=== PATIENT | female | born 1970 | race Caucasian/White ===

== ENCOUNTER → 2016-12-13 | Outpatient (CLI) | payer OTHER ==
[~2016-12-13] VITALS: Ht 157.5 cm; Wt 128.4 kg
[~2016-12-13] MED LIST: ABILIFY 5 MG TAB5 MG PO; ABILIFY15 MG PO; ACIDOPHILUS LACT1 GM PO; ADVAIR 250-501 EACH INH; ALBUTEROL2.5 MG/3 M INH; AMBIEN 5 MG TABL5 M1 PO; AMLODIPINE BESYL5 MG PO; ANTIVERT25 MG PO; ASPIR 8181 MG PO; ATIVAN1 MG PO; AZITHROMYCIN 2250 MG PO; BACTROBAN CREAM30 G1 TOP; BENADRYL25 MG PO; CARBAMAZEPINE200 M2 PO; CLONAZEPAM 1 MG1 M1 PO; CORTISPORIN EAR10 ML OTIC; COUMADIN 5 MG TA5 M1 PO; COZAAR 25 MG TA25 M1 PO; COZAAR 50 MG TA50 M2 PO; COZAAR100 MG PO; DELTASONE20 MG PO; DIAZEPAM 10 MG10 M1 PO; DIPROLENE AF 0.15 GM TP; DOXYCYCLINE 10100 MG PO; DUONEB 2.5-0.5 M3 ML INH; ENOXAPARIN120 MG/0.1 SUBQ; FLAGYL500 MG PO; FLEXERIL PO; FUROSEMIDE 40 M40 MG PO; GABAPENTIN 100100 MG PO; GLUCOPHAGE1000 MG PO; GLUCOSE4 GM PO; HUMALOG MI100 UNIT/2 SQ; HUMALOG PE100 UNIT/M SUBQ; HUMALOG100 UNIT/1 SUBQ; HYDROCODON-ACE1 EAC7 PO; HYDROCODONE-AP1 EAC6 PO; HYDROCODONE-APA1 TA1 PO; IBUPROFEN 600600 M1 PO; IBUPROFEN 800800 M1 PO; KEPPRA 500 MG500 M1 PO; KLONOPIN1 MG PO; KLOR-CON 1010 MEQ PO; LAMICTAL100 MG PO; LAMOTRIGINE150 MG PO; LASIX 20 MG TAB20 MG PO; LEVAQUIN 500 M500 M2 PO; LEVAQUIN 500 M500 M4 PO; LEVEMIR FL100 UNIT/2 SQ; LEVEMIR SUBQ; LEXAPRO 10 MG T10 M1 PO; LEXAPRO 10 MG T10 M2 PO; LEXAPRO20 MG PO; LIDODERM 5%1 PATC1 TRANSDERM; LIPITOR10 MG PO; MAG-AL PLUS SUS30 ML PO; METOCLOPRAMIDE 55 M1 PO; MINIPRESS1 MG PO; MINIPRESS5 MG PO; MONTELUKAST SOD10 MG PO; MUCINEX DM TABL1 TA1 PO; MUCINEX TA600 MG/TA2 PO; MUCUS RELIEF600 MG PO; NEXIUM40 MG PO; NORCO 10-325 T1 EACH PO; NORCO 5-325 TA1 EACH PO; NOVOLOG100 UNIT/1 SUBQ; NYSTATIN 1100000 U/M SW&SWALLOW; NYSTATIN 1100000 U/M TOP; ONDANSETRON HCL4 M2 PO; PAXIL10 MG; PERCOCET 5-3251 EACH PO; POTASSIUM20 PO; PREDNISONE 10 M10 M1 PO; PREDNISONE 10 M10 MG; PREDNISONE 10 M10 MG PO; PREDNISONE 20 M20 MG PO; PREDNISONE50 MG PO; PRILOSEC 20 MG20 MG PO; PRILOSEC40 MG PO; PROAIR HFA8.5 GM INH; REGLAN 10 MG TA10 MG PO; REQUIP 0.25 M0.25 M1 PO; REQUIP 0.25 M0.25 MG PO; SPIRIVA INH; SPIRIVA18 MCG INH; TEGRETOL200 MG PO; TESSALON PERLE100 MG PO; TYLENOL325 MG PO; VALIUM5 MG PO; VENTOLIN HFA 1818 GM INH; VICTOZA0.6 MG/0.1 SUBQ; VOLTAREN GEL 1100 G2 TOP; WARFARIN SODIUM10 MG PO; XALATAN2.5 ML OPHTHALMIC; XARELTO15 MG PO; ZOFRAN ODT4 MG PO; ZOFRAN ODT8 MG PO; ZOLPIDEM TARTRA10 MG PO
--- NOTE | ~2016-12-13 | P ---
[facility] [address] PROCEDURE REPORT Name: ADRIÁN DAN Ebony Room #: REG [facility]#: [id number] Admission: 12/13/16 Attend Phys: Aris Valentin MD Discharge: Date of : 68 Report #: [id number] THIS REPORT FOR: //name// CC: Aris Ruelas MD BRIEF HISTORY: The patient is a 46-year-old woman who has had anemia. She has also had melanotic stools. She is on warfarin due to pulmonary emboli. PREOPERATIVE DIAGNOSIS: Melena and anemia. POSTOPERATIVE DIAGNOSIS: A 6 mm sessile polyp, rectum. MEDICATIONS: Deep sedation with propofol per anesthesia. SPECIMEN: Rectal polyp. ESTIMATED BLOOD LOSS: 3 mL. PROCEDURE: Colonoscopy to cecum with snare polypectomy. FINDINGS: Prior to propofol sedation, procedure of colonoscopy was discussed with the patient as well as potential risks, benefits, and complications. She indicates she understands and desires to proceed. DESCRIPTION OF PROCEDURE: With the patient in left lateral decubitus position, digital examination was completed which revealed no abnormalities. Subsequently, the [employer] video colonoscope was introduced in the rectum, advanced under direct vision to the cecum. Done with minimal difficulty. The cecum was identified by the ileocecal valve and the appendiceal orifice. Unfortunately, there were limitations of the prep and there was a moderate amount of semi-solid material filling the cecum, which could not be aspirated away. I actually to clarify above, we reached the cecum, but I could not see the appendiceal orifice. I could see the ileocecal valve, but due to looping could not advance the scope across the ileocecal valve. The prep limitations were primarily in the proximal colon. As we withdrew the scope distally, the prep improved. Upon slow withdrawal of the scope, the mucosa was inspected. The mucosa as well as could be seen was within normal limits, normal vascular pattern, normal light reflex. No blood or bleeding lesions were seen. Due to retained material in the proximal colon, a lesion could have been overlooked. As we withdrew the scope through the colon and withdrew distally, the prep became better. Again, no mucosal abnormalities or bleeding lesions were seen. The scope was withdrawn in the rectum. Upon retroflexion, just above the anal verge, a 6 mm sessile polyp was seen, it had an adenomatous appearance. It was removed by cold snare polypectomy. The scope was withdrawn. The patient tolerated the procedure [address] [address] PROCEDURE REPORT Name: ADRIÁN DAN Room #: REG [facility]#: [id number] Admission: 12/13/16 Attend Phys: Aris Valentin MD Discharge: Date of : 68 Report #: [id number]. CONDITION OF THE PATIENT UPON DISCHARGE: Last procedure, the patient drowsy, aroused. She will be discharged home when fully ambulatory. INSTRUCTIONS TO THE PATIENT AND FAMILY AT THE TIME OF DISCHARGE: Polyp was identified and removed as described above. However, a definite bleeding lesion was not seen. The source of black stools was not identified. Actually she can resume her Coumadin today. She reports her INR was 1.1 yesterday. We will follow up on the path of polyp and make further recommendations. However, at this point, due to the fact that we did find a polyp and there were significant limitations to her colonoscopy, we will have her return in the next few months to repeat a colonoscopy with a longer prep. With the use of narcotics and diabetes, there may be some motility issues as well. Also, as far as her melena, if that remains concern, an M2 capsule study could be pursued as well. She will return in the care of Dr. Hayley Velasquez and also Dr. An Ruelas. She is to return to see me as needed. <ELECTRONICALLY SIGNED> By: Aris Valentin MD 12/14/16 0743 1203 0107 Aris Valentin MD /nt
--- NOTE | ~2016-12-13 | S ---
[facility] [place] [address] SURGICAL PATH RPT PROCEDURE Name: KATIE DAN Room #: REG [facility].#: [id number] Admission: 12/13/16 Date of : 68 Discharge: Report #: [id number] Path Case #: [id number] PATHOLOGY REPORT COLLECTION DATE: 12/13/2016 RECEIVED DATE: 12/14/2016 SUBMITTING PHYS: Dr. Aris Valentin OTHER PHYS: Dr. Hayley Velasquez SPECIMEN(S) RECEIVED: A.SB BX B.Gastric gastritis C.Rectum polyp * * * * * * * * * * * * FINAL DIAGNOSIS: A. Small bowel mucosa, small bowel, endoscopic biopsy: - Negative for villous blunting or increase in intraepithelial lymphocytes. - Negative for active inflammation. B. Gastric mucosa, gastritis, rule out H. pylori, endoscopic biopsy: - Moderate reactive gastropathy. - Negative for intestinal metaplasia or atrophy. - Negative for Helicobacter pylori. C. Polyp, rectum polyp, endoscopic biopsy: - Tubular adenoma. - Negative for high grade dysplasia. COMMENT: Helicobacter pylori immunohistochemical stain performed on block B1 negative. (IUV:csd; d/t: 12/17/2016) PATHOLOGIST: Eva Simpson M.D. REPORT ELECTRONICALLY SIGNED BY: Eva Simpson M.D. DATE/TIME: 12/17/2016 16:33 * * * * * * * * * * * * GROSS PATHOLOGY: A. Received in formalin labeled "Katie Dan, SB BX," are six segments of ramos soft tissue measuring 1.0 x 0.9 x 0.2 cm in aggregate dimensions and ranging from 0.2 to 0.5 cm in maximum dimension. The specimen is submitted entirely in cassette A1. B. Received in formalin labeled "Katie Dan, gastric," are five segments of ramos soft tissue measuring 1.0 x 0.7 x 0.1 cm in aggregate dimensions and ranging from 0.1 to 0.7 cm in maximum dimension. The [facility] [place] [address] SURGICAL PATH RPT PROCEDURE Name: KATIE DAN Room #: REG [facility].#: [id number] Admission: 12/13/16 Date of : 68 Discharge: Report #: [id number] Path Case #: [id number] specimen is submitted entirely in cassette B1. C. Received in formalin labeled "Katie Dan, rectal polyp," are three segments of ramos soft tissue measuring 1.7 x 1.5 x 0.3 cm in aggregate dimensions and ranging from 0.5 to 0.7 cm in maximum dimension. The specimen is submitted entirely in cassette C1. (CAA; 12/14/2016) CLINICAL HISTORY: Anemia A. R/O celiac disease B. R/O H. pylori INITIAL CPT CODE(S): A; 42211 B; 87125, 41024 C; 92338 Professional services performed by [facility] at [facility] , [place] [address] Technical services performed by [facility] at [address] [place] [address], [address], [place] [address]. [facility] [address] [place] [address] PHONE: [phone] DIRECTOR: Ugo Weiss M.D. * * * END OF REPORT * * *
--- NOTE | ~2016-12-13 | P ---
[facility] [place] [address] PROCEDURE REPORT Name: ADRIÁN DAN Room #: REG [facility]#: [id number] Admission: 12/13/16 Attend Phys: Aris Valentin MD Discharge: Date of : 68 Report #: [id number] THIS REPORT FOR: //name// CC: Aris Ruelas MD BRIEF HISTORY: The patient is a 46-year-old woman who presents today for evaluation of melanotic stools while on warfarin. It is noted she does have intermittent solid food dysphagia. She also takes 2400 mg of ibuprofen daily. She has occasional heartburn symptoms. PREOPERATIVE DIAGNOSES: Anemia and melanotic stools and use of nonsteroidals. POSTOPERATIVE DIAGNOSES: 1. Small to moderate hiatus hernia. 3. Mild diffuse gastritis. MEDICATIONS: Deep sedation with propofol per anesthesia. SPECIMEN: 1. Small bowel biopsies to rule out celiac disease. 2. Biopsies of gastritis. ESTIMATED BLOOD LOSS: 3 mL. PROCEDURE: Esophagogastroduodenoscopy with biopsy and Arrieta dilation. FINDINGS: Prior to propofol sedation, procedure of upper endoscopy was discussed with the patient as well as potential risks and its complications. She indicates she understands and desires to proceed. With the patient in left lateral decubitus position, the [employer] video endoscope was inserted in the cervical esophagus under direct vision without difficulty. Examination of this organ its entire length revealed normal esophageal mucosa down the squamocolumnar junction. The squamocolumnar junction was normal. There was no evidence of bleeding, no esophageal varices. She had dysphagia. Definite stricture or ring was not seen. In addition, a small to moderate 2-3 cm sliding type hiatus hernia was intermittently seen. The mucosa in the hernia was normal. Scope was advanced fully into the stomach, was examined on end view as well as retroflexed views. She had intact mucosa. No ulcers, bleeding lesions or vascular ectasias. On retroflexion, no abnormalities were seen. No mass lesions were seen. Examination of distal stomach revealed a mild gastritis. She reports that she was told in the past she had "thinned stomach line." It may be somewhat atrophic. Biopsies were obtained of the body and antrum. The pylorus, duodenal bulb and postbulbar sweep were inspected and [facility] [address] [place] [address] PROCEDURE REPORT Name: ADRIÁN DAN [facility] [id number] Admission: 12/13/16 Attend Phys: Aris Valentin MD Discharge: Date of : 68 Report #: [id number] noted to be within normal limits. The villous pattern was normal. However, due to her anemia, small bowel biopsies obtained to evaluate for celiac disease. At that point, the scope was slowly withdrawn and careful circumferential views confirmed the above findings. The patient tolerated the procedure well. Following the procedure, she was dilated with passage of 50-Tristanian Arrieta dilator. There was no resistance. CONDITION OF THE PATIENT UPON DISCHARGE: Following procedure, the patient drowsy and prepared for colonoscopy. INSTRUCTIONS TO THE PATIENT AND FAMILY AT THE TIME OF DISCHARGE: I do not see any bleeding lesions. We will follow up on biopsies obtained today. She does use ibuprofen. The gastric mucosa was intact. She should continue her omeprazole. We will proceed with colonoscopy at this time. <ELECTRONICALLY SIGNED> By: Aris Valentin MD 12/14/16 0743 1135 0038 Aris Valentin MD /nt
== END | disposition home or self-care (01) ==
LOC: GI 08:58
DX: K92.1 Melena (principal); D64.9 Anemia, unspecified; D12.8 Benign neoplasm of rectum; I26.99 Other pulmonary embolism without acute cor pulmonale; R13.19 Other dysphagia; K29.70 Gastritis, unspecified, without bleeding; K44.9 Diaphragmatic hernia without obstruction or gangrene

== ENCOUNTER → 2017-02-07 | Outpatient (CLI) | payer OTHER ==
[~2017-02-07] VITALS: Ht 157.5 cm; Wt 129.7 kg
[~2017-02-07] MED LIST changes: +CARDURA4 MG PO
--- NOTE | ~2017-02-07 | P ---
[facility] [place] [address] PROCEDURE REPORT Name: ADRIÁN DAN Ebony Room #: REG [facility]#: [id number] Admission: 02/07/17 Attend Phys: Aris Valentin MD Discharge: Date of : 68 Report #: [id number] THIS REPORT FOR: //name// CC: Aris Velasquez MD DATE OF SERVICE: 02/07/2017 BRIEF HISTORY: The patient is a 46-year-old woman with anemia and melanotic stools. She presents for colonoscopy today as in November, her proximal colon was not adequately prepped for a complete colonoscopy. PREOPERATIVE DIAGNOSES: Melena, anemia and colon polyps as well as family history of colon cancer. POSTOPERATIVE DIAGNOSIS: Small hemorrhoids. MEDICATIONS: Deep sedation with propofol per anesthesia. SPECIMEN: None. ESTIMATED BLOOD LOSS: None. PROCEDURE: Colonoscopy to cecum and terminal ileum. FINDINGS: Prior to propofol sedation, procedure of colonoscopy discussed with the patient as well as potential risks and its complications. She indicates she understands and desires to proceed. DESCRIPTION OF PROCEDURE: With the patient in left lateral decubitus position, digital examination was completed which revealed no abnormalities. Subsequently, the [employer] video colonoscope was introduced into the rectum, advanced under direct vision to the cecum. Done with minimal difficulty. The cecum was identified by the ileocecal valve and the appendiceal orifice. I was able to visualize the distal segment of terminal ileum, which was inspected and noted to be unremarkable. At that point, the scope was slowly withdrawn and careful circumferential views were obtained. On today's exam as compared to several months ago, the prep was much improved in the proximal colon. We were able to see the appendiceal orifice today as on last exam, it was totally obscured. However, there was still some particulate matter scattered about the colon, in particular the cecum. However, again the prep was much improved from last time and although there were some minor limitations, reasonably good views were obtained throughout much of the colon in spite of some retained material. As we withdrew the scope, the mucosa was within normal limits, normal vascular pattern, normal light reflex. No polypoid lesions were seen. No bleeding [facility] [address] [place] [address] PROCEDURE REPORT Name: NIADRIÁN L Room #: REG [facility]#: [id number] Admission: 02/07/17 Attend Phys: Aris Valentin MD Discharge: Date of : 68 Report #: [id number] lesions were seen. I did not find evidence of vascular ectasias. As we withdrew the scope, no additional abnormalities were seen. The scope was withdrawn in the rectum. Upon retroflexion, some very small internal hemorrhoids were seen. There is no evidence of active bleeding. Scope was withdrawn. The patient tolerated the procedure well. CONDITION OF THE PATIENT UPON DISCHARGE: Following procedure, the patient drowsy, aroused, conversant. She will be discharged home when fully ambulatory. INSTRUCTIONS TO THE PATIENT AND FAMILY AT THE TIME OF DISCHARGE: The patient with melanotic stools and anemia. She has had a full workup at this point in time. An obvious source of blood loss has not been identified. I do not see that the M2 capsule study has been done. We will discuss with the patient role of M2 capsule study. Consider completing that exam at a later date. She should continue to follow up with Dr. Hayley Velasquez and to have her hemoglobin monitored. Due to her family history of colon cancer in father at age 56 and limitations of prep, we will have her return in 3 years for followup colonoscopy. Withdrawal time from the cecum was 12 minutes. By: 0952 1048 Aris Valentin MD /nt
== END | disposition home or self-care (01) ==
LOC: GI 08:26
DX: D64.9 Anemia, unspecified (principal); K92.1 Melena; Z80.0 Family history of malignant neoplasm of digestive organs; K64.8 Other hemorrhoids
CPT/HCPCS: 62110

== ENCOUNTER → 2017-03-13 | Outpatient (CLI) | payer OTHER | LOC: RAD 14:09 | DX: R05 Cough (principal) ==

== ENCOUNTER 2017-03-21 11:08 | Inpatient (IN) | payer OTHER ==
[~2017-03-21] VITALS: Ht 161 cm; Wt 131.5 kg
--- NOTE | ~2017-03-21 | EKG ---
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1970 Requested By: Davis Ryder Order Number: [id number] MD: Paxton Lane Measurements Intervals [place] Rate: 102 P: 35 NE: 148 QRS: 12 QRSD: 91 T: 71 QT: 335 QTc: 437 Interpretive Statements Sinus tachycardia Low voltage, precordial leads Compared to ECG 10/28/2016 17:10:13 Low QRS voltage now present Sinus rhythm no longer present Electronically Signed On 03-23-2017 15:55:[address] [email or web address] <ELECTRONICALLY SIGNED> By: Paxton Lane MD 03/23/[address] MD /[facility]
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
[2017-03-21 11:08] VITALS: BP 144/65
[2017-03-21 13:18] LABS: ABSOLUTE NEUTROPHILS 9.1 thou/uL (1.4-8.2); BASOPHILS 0.6 % (0.0-2.0); EOSINOPHILS 2.1 % (0.0-3.0); HEMOGLOBIN 9.2 gm/dL (12.0-15.0); LYMPHOCYTES 16.7 % (24.0-44.0); MCHC 30.5 g/dL (28.0-37.0); MCV 72.2 fL (80.0-100.0); MONOCYTES 4.9 % (1.0-8.0); PLATELET COUNT 402 thou/uL (150-400); POLYS 75.7 % (36.0-66.0); RBC 4.15 mil/uL (4.20-5.00); WBC 12.1 thou/uL (4.0-11.0)
[2017-03-21 13:19] LABS: MANUAL DIFF NO
[2017-03-21] MEDS ORDERED: NORCO 10-325 T1 EACH PO (13:24)
[2017-03-21 13:31] LABS: ANION GAP 1 mmol/L (7-16); APTT 23.3 Seconds (24.5-32.8); BUN 14 mg/dL (7-18); CALCIUM 8.8 mg/dL (8.5-10.1); CHLORIDE 99 mmol/L (98-107); CO2 40 mmol/L (21-32); CREATININE 0.5 mg/dL (0.6-1.0); GLUCOSE 117 mg/dL (74-106); POTASSIUM 3.7 mmol/L (3.5-5.1); PROTIME 10.7 Seconds (9.3-11.4); SODIUM 140 mmol/L (136-145)
[2017-03-21 13:34] LABS: ANISOCYTOSIS 2+; HYPOCHROMASIA 2+; MICROCYTES 2+; OVALOCYTES FEW; PLATELET ESTIMATE INCREASED
[2017-03-21 13:50] LABS: ALBUMIN 3.1 g/dL (3.4-5.0); ALKALINE PHOSPHATASE 75 U/L (46-116); CK-MB MASS 1.5 ng/mL (<0.5-3.6); MAGNESIUM 1.9 mg/dL (1.8-2.4); NT-PRO BRAIN NAT PEPTIDE 180 pg/mL (<300); SGOT 22 U/L (15-37); SGPT 40 U/L (30-65); TOTAL BILIRUBIN 0.1 mg/dL (<0.1-1.0); TOTAL PROTEIN 6.7 g/dL (6.4-8.2); TROPONIN-I < 0.04 ng/mL (<0.04-0.07)
[2017-03-21] MEDS ORDERED: WARFARIN SODIUM10 MG PO (14:43)
[2017-03-21 15:56] VITALS: BP 126/71
[2017-03-21 20:00] VITALS: BP 153/76
[2017-03-22 04:00] VITALS: BP 123/66
[2017-03-22 04:40] LABS: HEMATOCRIT 30.1 % (37.0-47.0); HEMOGLOBIN 9.2 gm/dL (12.0-15.0); MCH 22.1 pg (26.0-34.0); MCHC 30.5 g/dL (28.0-37.0); MCV 72.4 fL (80.0-100.0); PLATELET COUNT 422 thou/uL (150-400); RBC 4.16 mil/uL (4.20-5.00); RDW 20.2 % (10.5-14.5); WBC 12.3 thou/uL (4.0-11.0)
[2017-03-22 04:42] LABS: MANUAL DIFF YES
[2017-03-22 04:48] LABS: CALCIUM 9.1 mg/dL (8.5-10.1); CREATININE 0.6 mg/dL (0.6-1.0); POTASSIUM 4.2 mmol/L (3.5-5.1)
[2017-03-22 04:51] LABS: INR 1.1; PROTIME 11.6 Seconds (9.3-11.4)
[2017-03-22 08:00] VITALS: BP 135/70
[2017-03-22 08:03] VITALS: BP 135/70
[2017-03-22 08:28] LABS: ABSOLUTE NEUTROPHILS 11.1 thou/uL (1.4-8.2); NUCLEATED RBCS 1 /100WBC; TOTAL CELL COUNT 100
[2017-03-22 08:29] LABS: ANISOCYTOSIS 1+; HYPOCHROMASIA 1+; LARGE PLATELETS OCCASIONAL
[2017-03-22 08:30] LABS: MICROCYTES SLIGHT; OVALOCYTES FEW
[2017-03-22 17:50] VITALS: BP 155/82
[2017-03-22 20:10] VITALS: BP 155/94
[2017-03-23 00:30] VITALS: BP 145/78
[2017-03-23 00:41] VITALS: BP 105/61
[2017-03-23 02:58] LABS: HEMATOCRIT 28.3 % (37.0-47.0); HEMOGLOBIN 8.8 gm/dL (12.0-15.0); MCH 22.3 pg (26.0-34.0); MCHC 31.2 g/dL (28.0-37.0); MCV 71.4 fL (80.0-100.0); RBC 3.96 mil/uL (4.20-5.00); RDW 20.4 % (10.5-14.5)
[2017-03-23 03:00] VITALS: BP 145/78
[2017-03-23 03:04] LABS: CALCIUM 9.3 mg/dL (8.5-10.1); CREATININE 0.5 mg/dL (0.6-1.0); POTASSIUM 4.6 mmol/L (3.5-5.1)
[2017-03-23 03:10] LABS: PROTIME 17.6 Seconds (9.3-11.4)
[2017-03-23 03:35] LABS: INR 1.7
[2017-03-23 08:40] VITALS: BP 151/91
[2017-03-23 18:05] VITALS: BP 167/83
[2017-03-23 20:15] VITALS: BP 178/83
[2017-03-24 04:10] VITALS: BP 160/77
[2017-03-24 06:07] LABS: PROTIME 28.8 Seconds (9.3-11.4)
[2017-03-24 06:08] LABS: INR 2.8
[2017-03-24 08:00] VITALS: BP 152/95
[2017-03-24 16:00] VITALS: BP 150/74
[2017-03-24 20:00] VITALS: BP 146/72
[2017-03-25 03:11] LABS: INR 1.9; PROTIME 19.6 Seconds (9.3-11.4)
[2017-03-25 04:00] VITALS: BP 137/87
[2017-03-25] MEDS ORDERED: MIRALAX17 GM PO (09:08)
[2017-03-25] MEDS ORDERED: PROBIOTIC1 EAC1 PO (09:08)
[2017-03-25] MEDS ORDERED: PREDNISONE 10 M10 MG PO (09:08)
[2017-03-25] MEDS ORDERED: LEVAQUIN 750 M750 MG PO (09:08)
[2017-03-25 09:25] VITALS: BP 142/75
[2017-03-25 17:52] VITALS: BP 128/72
[2017-03-25 19:41] VITALS: BP 157/67
[2017-03-26 03:57] VITALS: BP 137/68
[2017-03-26 04:14] LABS: INR 1.4
[2017-03-26 07:57] VITALS: BP 132/74
[2017-03-26 16:02] VITALS: BP 129/64
[2017-03-26 20:00] VITALS: BP 146/73
[2017-03-27 04:00] VITALS: BP 133/71
[2017-03-27 06:23] LABS: INR 1.2; PROTIME 12.7 Seconds (9.3-11.4)
[2017-03-27 08:00] VITALS: BP 128/59
[2017-03-27 12:52] LABS: HEMATOCRIT 35.2 % (37.0-47.0); HEMOGLOBIN 10.8 gm/dL (12.0-15.0); MCH 22.4 pg (26.0-34.0); MCHC 30.6 g/dL (28.0-37.0); MCV 73.4 fL (80.0-100.0); RBC 4.8 mil/uL (4.20-5.00); RDW 21.5 % (10.5-14.5); WBC 15.8 thou/uL (4.0-11.0)
[2017-03-27 13:00] LABS: CALCIUM 8.5 mg/dL (8.5-10.1); CREATININE 0.7 mg/dL (0.6-1.0); POTASSIUM 4.3 mmol/L (3.5-5.1)
[2017-03-27 13:00] LABS: ABG COMMENT NO COMPLICATIONS.; ABG SAMPLE TYPE ARTERIAL; BE(vivo) 8.1 mmol/L (-2 to +3); LACTATE 2.07 mmol/L (0.5-2.0); O2(CT) 14.7 mL/dL (15.0-23.0); O2Hb 93.1 % (92.0-98.0); PCO2 61.1 mmHg (35.0-45.0); PO2 74.9 mmHg (80.0-100.0); STICK SITE R.RADIAL; pH 7.376 (7.360-7.450); sO2 94.4 % (92.0-98.0); tCO2 36.9 mmol/L (24.0-30.0)
[2017-03-27 18:08] VITALS: BP 145/67
[2017-03-27 19:45] VITALS: BP 140/79
[2017-03-28 03:00] VITALS: BP 143/92
[2017-03-28 03:15] VITALS: BP 143/82
[2017-03-28 06:59] LABS: INR 1.5; PROTIME 15.7 Seconds (9.3-11.4)
[2017-03-28 07:08] VITALS: BP 133/77
[2017-03-28 09:04] LABS: ANION GAP < 0 mmol/L (7-16); BUN 24 mg/dL (7-18); CALCIUM 8.5 mg/dL (8.5-10.1); CHLORIDE 100 mmol/L (98-107); CO2 39 mmol/L (21-32); CREATININE 0.6 mg/dL (0.6-1.0); GLUCOSE 305 mg/dL (74-106); POTASSIUM 5.2 mmol/L (3.5-5.1); SODIUM 138 mmol/L (136-145)
[2017-03-28 09:38] LABS: HEMATOCRIT 32.6 % (37.0-47.0); HEMOGLOBIN 9.9 gm/dL (12.0-15.0); MCH 22.5 pg (26.0-34.0); MCHC 30.5 g/dL (28.0-37.0); MCV 73.8 fL (80.0-100.0); RBC 4.42 mil/uL (4.20-5.00); RDW 21.8 % (10.5-14.5); WBC 14.6 thou/uL (4.0-11.0)
[2017-03-28 16:01] VITALS: BP 124/67
[2017-03-28 19:49] VITALS: BP 125/53
[2017-03-29 01:11] LABS: GLYCOHEMOGLOBIN (HGB A1C) 9.2 % (4.8-5.6)
[2017-03-29 04:22] VITALS: BP 107/63
[2017-03-29 08:47] VITALS: BP 109/66
[2017-03-29 12:34] VITALS: BP 139/70
[2017-03-29 16:44] VITALS: BP 113/60
[2017-03-29 20:30] VITALS: BP 117/60
[2017-03-30 04:15] VITALS: BP 113/63
[2017-03-30 08:32] VITALS: BP 118/60
[2017-03-30 12:59] LABS: PROTIME 30.8 Seconds (9.3-11.4)
[2017-03-30] MEDS ORDERED: TRADJENTA5 MG PO (13:46)
[2017-03-30] MEDS ORDERED: GLUCOPHAGE500 MG PO (13:46)
[2017-03-30 14:09] VITALS: BP 118/60
[2017-03-30 16:44] VITALS: BP 105/50
[2017-03-30 17:34] VITALS: BP 118/60
== END 2017-03-30 19:30 | disposition home health service (06) | DRG 871 ==
LOC: ER 11:08 → 3N 13:50 → EROBS 13:50 → 3N 14:50
PROVIDERS: Emergency Medicine; Hospitalist; Internal Medicine; Internal Medicine Endocrinology, Diabetes & Metabolism; Internal Medicine Pulmonary Disease; Nurse Practitioner
PROC: 02HV33Z Insertion of Infusion Device into Superior Vena Cava, Percutaneous Approach (ICD-10-PCS; principal; 2017-03-22)
DX: A41.9 Sepsis, unspecified organism (principal); J96.21 Acute and chronic respiratory failure with hypoxia; I50.33 Acute on chronic diastolic (congestive) heart failure; J44.1 Chronic obstructive pulmonary disease with (acute) exacerbation; E66.2 Morbid (severe) obesity with alveolar hypoventilation; D68.59 Other primary thrombophilia; Z68.43 Body mass index [BMI] 50.0-59.9, adult; I42.9 Cardiomyopathy, unspecified; I11.0 Hypertensive heart disease with heart failure; H40.9 Unspecified glaucoma; F41.9 Anxiety disorder, unspecified; F43.10 Post-traumatic stress disorder, unspecified; E78.00 Pure hypercholesterolemia, unspecified; L40.9 Psoriasis, unspecified; K21.9 Gastro-esophageal reflux disease without esophagitis; F31.9 Bipolar disorder, unspecified; E11.65 Type 2 diabetes mellitus with hyperglycemia; D64.9 Anemia, unspecified; G40.909 Epilepsy, unspecified, not intractable, without status epilepticus; D72.829 Elevated white blood cell count, unspecified; N28.1 Cyst of kidney, acquired; E78.5 Hyperlipidemia, unspecified; I27.2 Other secondary pulmonary hypertension; G25.81 Restless legs syndrome; Z88.5 Allergy status to narcotic agent; Z88.6 Allergy status to analgesic agent; Z86.711 Personal history of pulmonary embolism; Z90.710 Acquired absence of both cervix and uterus; Z88.0 Allergy status to penicillin; Z88.8 Allergy status to other drugs, medicaments and biological substances; Z86.718 Personal history of other venous thrombosis and embolism; Z88.2 Allergy status to sulfonamides; Z91.040 Latex allergy status; Z91.09 Other allergy status, other than to drugs and biological substances; Z87.891 Personal history of nicotine dependence; Z79.01 Long term (current) use of anticoagulants; Z99.81 Dependence on supplemental oxygen; Z79.4 Long term (current) use of insulin
CPT/HCPCS: 10096; 27001

== ENCOUNTER 2017-04-25 11:52 | Inpatient (IN) | payer OTHER ==
[~2017-04-25] VITALS: Ht 165.1 cm; Wt 127.0 kg
--- NOTE | ~2017-04-25 | S ---
[facility] [place] [address] SURGICAL PATH RPT PROCEDURE Name: KATIE DAN Room #: 434-P DIS IN M.R.#: [id number] Admission: 04/25/17 Date of : 68 Discharge: 04/30/17 Report #: [id number] Path Case #: [id number] PATHOLOGY REPORT COLLECTION DATE: 04/29/2017 RECEIVED DATE: 04/29/2017 SUBMITTING PHYS: Dr. Francisco De La Torre OTHER PHYS: Dr. Taylor Velasquez SPECIMEN(S) RECEIVED: A.Small bowel bx B.Gastric bx * * * * * * * * * * * * FINAL DIAGNOSIS: A. Small bowel mucosa, endoscopic biopsy: - No diagnostic abnormalities present. - Negative for villous blunting or increase in intraepithelial lymphocytosis. B. Gastric mucosa, gastric, endoscopic biopsy: - Mild chronic gastritis along with features of reactive gastropathy. - Negative for intestinal metaplasia or atrophy. - Negative for Helicobacter pylori. COMMENT: Helicobacter pylori immunohistochemical stain performed on block B1-negative (IUV:mgr; 05/01/2017) PATHOLOGIST: Eva Simpson M.D. REPORT ELECTRONICALLY SIGNED BY: Eva Simpson M.D. DATE/TIME: 05/01/2017 15:39 * * * * * * * * * * * * GROSS PATHOLOGY: A. Received in formalin labeled "Katie Dan, biopsy of small bowel," are three segments of ramos soft tissue measuring 0.8 x 0.4 x 0.3 cm in aggregate dimensions and ranging from 0.3 to 0.4 cm in maximum dimension. The specimen is submitted entirely in cassette A1. B. Received in formalin labeled "Katie Dan, biopsy gastric," are three segments of ramos soft tissue measuring 0.8 x 0.3 x 0.3 cm in aggregate dimensions and ranging from 0.2 to 0.4 cm in maximum dimension. The specimen is submitted entirely in cassette B1. (DAC; 04/30/2017) [address] [address] SURGICAL PATH RPT PROCEDURE Name: KATIE DAN Room #: 434-P [facility] IN M.R.#: [id number] Admission: 04/25/17 Date of : 68 Discharge: 04/30/17 Report #: [id number] Path Case #: [id number] CLINICAL HISTORY: Nausea, vomiting, reflux, hematemesis A. R/O sprue B. R/O H. pylori INITIAL CPT CODE(S): A; 86125 B; 50283, 78011 Professional services performed by [facility] at [address] , [place] [address] Technical services performed by [facility] at [address] [place] [address], [facility] [address] [address]. [facility] [address] [address] PHONE: [phone] DIRECTOR: Ugo Weiss M.D. * * * END OF REPORT * * *
--- NOTE | ~2017-04-25 | HC ---
[facility] [place] [address] CONSULTATION Name: ITZEL DANYCE Ebony Room #: 434-P [facility] IN .R.#: [id number] Admission: 04/25/17 Attend Phys: Taylor Cruz Discharge: Date of : 68 Report #: [id number] THIS REPORT FOR: //name// CC: Taylor Iniguez HISTORY OF PRESENT ILLNESS: The patient is a very pleasant 47-year-old female I have been asked to see for further evaluation of hematemesis. She has developed nausea and vomiting after being off her PPI for 72 hours and states that she has had a significant increase in her reflux symptoms as well as retching resulting in scant hematemesis. She has had witnessed hematemesis. Her hemoglobin has remained stable. PAST MEDICAL HISTORY: She has multiple medical problems including chronic lung disease from COPD. She has had significant other chronic medical problems to include congestive heart failure, obesity, obstructive sleep apnea, oxygen dependency, polysubstance abuse, seizure disorder. She has also had type 2 diabetes and urinary tract infection. Also included in her medical history are polycystic kidney disease, PTSD, hypercholesterolemia, and psoriasis. ALLERGIES: She has multiple allergies, please see in medical record. FAMILY HISTORY AND SOCIAL HISTORY: Otherwise, noncontributory. MEDICATIONS: Again are extensive; metformin, Tradjenta, MiraLax, probiotic, Advair, Humalog, Levemir, Requip, Neurontin, K-Dur, Abilify, [place], albuterol, montelukast sodium, Keppra, Lipitor, Ambien, Diprolene, Lamictal, Flexeril, diazepam, Lexapro, Cozaar, Prilosec, Valium, Cardura, and Xalatan eyedrops. This is per the medical history in the computer. REVIEW OF SYSTEMS: Negative for weight loss, weakness or fatigue. She denies head, eyes, ears, nose or throat complaint. She denies chest pain, chest palpitation, chest pressure, cough, shortness of breath, wheezing, genitourinary, musculoskeletal or neuropsychiatric complaints beyond that mentioned above. PHYSICAL EXAMINATION: GENERAL: The patient is afebrile. VITAL SIGNS: Stable. HEENT: Nonicteric. NECK: No JVD, thyromegaly or bruits. CARDIOVASCULAR: Regular. LUNGS: Distant anteriorly without rales or rhonchi. ABDOMEN: Soft, nondistended, obese, mildly tender in the epigastrium. No rebound or guarding. No stigmata of chronic liver disease. No abnormal masses or bruits. [address] [address] CONSULTATION Name: NIADRIÁN Room #: 434-P [facility] IN M.R.#: [id number] Admission: 04/25/17 Attend Phys: Taylor Cruz Discharge: Date of : 68 Report #: [id number] EXTREMITIES: Deferred. NEUROLOGIC: Deferred. RECTAL: Deferred. LABORATORY DATA: Pertinent labs include hemoglobin 9.9 on admission, now 9.1; MCV 72.7, RDW 21.9. Her INR on presentation was 11, today it is 1.1. Chemistry significant for glucose 221, venous bicarbonate 37. IMAGING STUDIES: CT abdomen and pelvis notable for mild fatty liver, minimal umbilical fat hernia without bowel entrapment, unchanged cyst from the left kidney, unchanged CT. ASSESSMENT AND PLAN: In summary, the patient presents with increasing shortness of breath and hypertherapeutic INR, which has normalized now. I have asked her to discontinue her Coumadin today for upper endoscopy, which we will perform tomorrow. Her hematemesis which is scant is likely result of erosive esophagitis or [place] tear. I appreciate the opportunity to participate in her care. <ELECTRONICALLY SIGNED> By: Francisco De La Torre MD 04/29/17 1040 1156 1826 Jesus Patrick MD /nt
[~2017-04-25 11:52] MED LIST changes: +GLUCOPHAGE500 MG PO; +LEVAQUIN 750 M750 MG PO; +MIRALAX17 GM PO; +PROBIOTIC1 EAC1 PO; +TRADJENTA5 MG PO
[2017-04-25 11:53] VITALS: BP 157/80
[2017-04-25 12:55] LABS: ABSOLUTE NEUTROPHILS 5.5 thou/uL (1.4-8.2); BASOPHILS 0.5 % (0.0-2.0); EOSINOPHILS 1.2 % (0.0-3.0); HEMATOCRIT 31.1 % (37.0-47.0); HEMOGLOBIN 9.9 gm/dL (12.0-15.0); LYMPHOCYTES 18.8 % (24.0-44.0); MCH 23.1 pg (26.0-34.0); MCHC 31.8 g/dL (28.0-37.0); MCV 72.7 fL (80.0-100.0); PLATELET COUNT 412 thou/uL (150-400); POLYS 73.5 % (36.0-66.0); RBC 4.28 mil/uL (4.20-5.00); RDW 21.9 % (10.5-14.5); WBC 7.5 thou/uL (4.0-11.0)
[2017-04-25 13:03] LABS: ANION GAP 1 mmol/L (7-16); BUN 17 mg/dL (7-18); CALCIUM 8.9 mg/dL (8.5-10.1); CHLORIDE 102 mmol/L (98-107); CO2 37 mmol/L (21-32); CREATININE 0.5 mg/dL (0.6-1.0); GLUCOSE 221 mg/dL (74-106); MANUAL DIFF NO; POTASSIUM 3.7 mmol/L (3.5-5.1); SODIUM 140 mmol/L (136-145)
[2017-04-25 13:09] LABS: ALKALINE PHOSPHATASE 73 U/L (46-116); DIRECT BILIRUBIN < 0.1 mg/dL (<0.1-0.3); SGOT 22 U/L (15-37); SGPT 37 U/L (30-65); TOTAL BILIRUBIN 0.2 mg/dL (<0.1-1.0); TOTAL PROTEIN 6.4 g/dL (6.4-8.2)
[2017-04-25 13:25] LABS: ANISOCYTOSIS 1+; HYPOCHROMASIA 1+
[2017-04-25 13:26] LABS: MICROCYTES 1+
[2017-04-25 13:41] LABS: PROTIME 108.4 Seconds (9.3-11.4)
[2017-04-25 13:51] LABS: APTT 103.2 Seconds (24.5-32.8)
[2017-04-25 14:38] LABS: URINE COLOR YELLOW
[2017-04-25 14:39] LABS: URINE BILIRUBIN NEGATIVE (Negative); URINE BLOOD NEGATIVE (Negative); URINE GLUCOSE-RANDOM* 1+ (Negative); URINE KETONES NEGATIVE (Negative); URINE PROTEIN (DIPSTICK) TRACE (Negative); URINE UROBILINOGEN 0.2 E.U./dl (0.2-1.0)
[2017-04-25 14:40] LABS: URINE LEUKOCYTES-REFLEX NEGATIVE (Negative)
[2017-04-25 15:52] VITALS: BP 151/84
[2017-04-25 15:54] VITALS: BP 151/84
[2017-04-25 16:19] VITALS: BP 141/70
[2017-04-25 20:30] VITALS: BP 140/67
[2017-04-26 04:30] VITALS: BP 140/71
[2017-04-26 08:00] VITALS: BP 143/74
[2017-04-26 12:14] LABS: HEMATOCRIT 30.8 % (37.0-47.0); HEMOGLOBIN 9.8 gm/dL (12.0-15.0); MCH 23.1 pg (26.0-34.0); MCHC 31.7 g/dL (28.0-37.0); MCV 72.9 fL (80.0-100.0); RBC 4.23 mil/uL (4.20-5.00); RDW 22.1 % (10.5-14.5)
[2017-04-26 12:41] LABS: INR 1.9
[2017-04-26 15:18] VITALS: BP 143/74
[2017-04-26 16:20] VITALS: BP 140/73
[2017-04-26 19:41] VITALS: BP 131/63
[2017-04-27 04:52] VITALS: BP 128/71
[2017-04-27 05:39] LABS: HEMOGLOBIN 9.5 gm/dL (12.0-15.0); MCH 23.2 pg (26.0-34.0); MCHC 31.7 g/dL (28.0-37.0); RBC 4.12 mil/uL (4.20-5.00); RDW 22.3 % (10.5-14.5); WBC 9.1 thou/uL (4.0-11.0)
[2017-04-27 06:05] LABS: INR 1.3; PROTIME 12.9 Seconds (9.3-11.4)
[2017-04-27 08:43] VITALS: BP 116/58
[2017-04-27 16:00] VITALS: BP 135/69
[2017-04-27 19:46] VITALS: BP 135/75
[2017-04-28 05:37] LABS: HEMATOCRIT 29.7 % (37.0-47.0); HEMOGLOBIN 9.1 gm/dL (12.0-15.0); MCH 22.8 pg (26.0-34.0); MCHC 30.7 g/dL (28.0-37.0); MCV 74.3 fL (80.0-100.0); RDW 22.2 % (10.5-14.5); WBC 6.2 thou/uL (4.0-11.0)
[2017-04-28 05:49] LABS: INR 1.1; PROTIME 11.1 Seconds (9.3-11.4)
[2017-04-28 05:53] VITALS: BP 150/59
[2017-04-28 07:42] VITALS: BP 132/67
[2017-04-28 16:32] VITALS: BP 133/69
[2017-04-29 05:41] LABS: CALCIUM 8.5 mg/dL (8.5-10.1); CREATININE 0.5 mg/dL (0.6-1.0); MAGNESIUM 1.6 mg/dL (1.8-2.4); POTASSIUM 3.7 mmol/L (3.5-5.1)
[2017-04-29 06:14] VITALS: BP 146/86
[2017-04-29 08:00] VITALS: BP 126/63
[2017-04-29 16:00] VITALS: BP 123/55
[2017-04-29 19:00] VITALS: BP 142/67
[2017-04-30 05:51] VITALS: BP 131/71
[2017-04-30 08:33] VITALS: BP 140/73
[2017-04-30] MEDS ORDERED: COUMADIN 5 MG TA5 M1 PO (09:24)
[2017-04-30] MEDS ORDERED: REGLAN 10 MG TA10 MG PO (09:26)
== END 2017-04-30 12:45 | disposition home or self-care (01) | DRG 368 ==
LOC: ER 11:52 → 4S 14:57 → EROBS 14:57 → 4S 15:48
PROVIDERS: Emergency Medicine; Hospitalist
PROC: 0DB68ZX Excision of Stomach, Via Natural or Artificial Opening Endoscopic, Diagnostic (ICD-10-PCS; principal; 2017-04-29)
PROC: 0DB88ZX Excision of Small Intestine, Via Natural or Artificial Opening Endoscopic, Diagnostic (ICD-10-PCS; principal; 2017-04-29)
DX: K22.6 Gastro-esophageal laceration-hemorrhage syndrome (principal); J96.00 Acute respiratory failure, unspecified whether with hypoxia or hypercapnia; D68.9 Coagulation defect, unspecified; Z68.42 Body mass index [BMI] 45.0-49.9, adult; K92.0 Hematemesis; E11.9 Type 2 diabetes mellitus without complications; H40.9 Unspecified glaucoma; F41.9 Anxiety disorder, unspecified; F43.10 Post-traumatic stress disorder, unspecified; E78.00 Pure hypercholesterolemia, unspecified; L40.9 Psoriasis, unspecified; J44.9 Chronic obstructive pulmonary disease, unspecified; K21.9 Gastro-esophageal reflux disease without esophagitis; H11.30 Conjunctival hemorrhage, unspecified eye; I11.0 Hypertensive heart disease with heart failure; I50.9 Heart failure, unspecified; G47.33 Obstructive sleep apnea (adult) (pediatric); G40.909 Epilepsy, unspecified, not intractable, without status epilepticus; E66.9 Obesity, unspecified; F31.9 Bipolar disorder, unspecified; G25.81 Restless legs syndrome; Z90.710 Acquired absence of both cervix and uterus; Z86.711 Personal history of pulmonary embolism; Z86.718 Personal history of other venous thrombosis and embolism; Z79.899 Other long term (current) drug therapy; Z88.8 Allergy status to other drugs, medicaments and biological substances; Z88.0 Allergy status to penicillin; Z88.6 Allergy status to analgesic agent; Z88.2 Allergy status to sulfonamides; Z87.891 Personal history of nicotine dependence
CPT/HCPCS: 10102; 62110; 62900; 70005

== ENCOUNTER → 2017-05-20 | Outpatient (CLI) | payer OTHER | LOC: RAD 12:19 | DX: M79.651 Pain in right thigh (principal); M79.604 Pain in right leg ==

== ENCOUNTER 2017-07-04 12:23 | Emergency (ER) | payer OTHER ==
[~2017-07-04] VITALS: Ht 157.5 cm; Wt 127.0 kg
--- NOTE | ~2017-07-04 | EKG ---
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1970 Requested By: Sheron Brumfield Order Number: [id number] MD: Paxton Lane Measurements Intervals [place] Rate: 96 P: 19 SD: 138 QRS: 5 QRSD: 124 T: 58 QT: 346 QTc: 438 Interpretive Statements Sinus rhythm Nonspecific intraventricular conduction delay Inferior infarct, old Consider anterior infarct Compared to ECG 03/21/2017 11:36:54 Intraventricular conduction delay now present Myocardial infarct finding now present Sinus tachycardia no longer present Electronically Signed On 07-04-2017 22:40:[address] [email or web address] <ELECTRONICALLY SIGNED> By: Paxton Lane MD 07/04/[address] MD /EPI
[2017-07-04 13:03] LABS: ABSOLUTE NEUTROPHILS 4.2 thou/uL (1.4-8.2); BASOPHILS 0.8 % (0.0-2.0); EOSINOPHILS 2.3 % (0.0-3.0); HEMATOCRIT 36.2 % (37.0-47.0); HEMOGLOBIN 11.2 gm/dL (12.0-15.0); LYMPHOCYTES 24.6 % (24.0-44.0); MANUAL DIFF NO; MCH 23.6 pg (26.0-34.0); MCV 76.3 fL (80.0-100.0); MONOCYTES 6.5 % (1.0-8.0); PLATELET COUNT 347 thou/uL (150-400); POLYS 65.8 % (36.0-66.0); RBC 4.75 mil/uL (4.20-5.00); RDW 21.9 % (10.5-14.5); WBC 6.4 thou/uL (4.0-11.0)
[2017-07-04 13:08] LABS: ANION GAP 10 mmol/L (7-16); BUN 16 mg/dL (7-18); CALCIUM 9.1 mg/dL (8.5-10.1); CHLORIDE 101 mmol/L (98-107); CO2 27 mmol/L (21-32); CREATININE 0.6 mg/dL (0.6-1.0); GLUCOSE 160 mg/dL (74-106); POTASSIUM 4.1 mmol/L (3.5-5.1); SODIUM 138 mmol/L (136-145)
[2017-07-04 13:17] LABS: APTT 34.1 Seconds (24.5-32.8); INR 1.7; PROTIME 17.7 Seconds (9.3-11.4); TROPONIN-I < 0.04 ng/mL (<0.04-0.07)
[2017-07-04 13:23] LABS: ABG SAMPLE TYPE ARTERIAL; BE(vivo) 2.1 mmol/L (-2 to +3); HCO3 24.9 mmol/L (22.0-26.0); O2(CT) 15.9 mL/dL (15.0-23.0); O2Hb 93.5 % (92.0-98.0); PCO2 32.7 mmHg (35.0-45.0); PO2 66.1 mmHg (80.0-100.0); STICK SITE R.RADIAL; pH 7.499 (7.360-7.450); sO2 94.8 % (92.0-98.0); tCO2 25.9 mmol/L (24.0-30.0)
[2017-07-04] MEDS ORDERED: PREDNISONE 20 M20 MG PO (14:13)
== END 2017-07-04 16:00 | disposition home or self-care (01) ==
LOC: ER 12:23
PROVIDERS: Emergency Medicine
DX: J06.9 Acute upper respiratory infection, unspecified (principal); I10 Essential (primary) hypertension; E11.9 Type 2 diabetes mellitus without complications; F41.9 Anxiety disorder, unspecified; F32.9 Major depressive disorder, single episode, unspecified; E78.00 Pure hypercholesterolemia, unspecified; I50.9 Heart failure, unspecified; J44.9 Chronic obstructive pulmonary disease, unspecified; F31.9 Bipolar disorder, unspecified; Z88.0 Allergy status to penicillin; Z88.2 Allergy status to sulfonamides; Z87.891 Personal history of nicotine dependence

== ENCOUNTER → 2017-07-09 | Outpatient (CLI) | payer OTHER | LOC: CAT 07-01 09:06 | DX: M79.651 Pain in right thigh (principal) ==

== ENCOUNTER 2017-07-22 13:32 | Inpatient (IN) | payer OTHER ==
[~2017-07-22] VITALS: Ht 157.5 cm; Wt 162.8 kg
[2017-07-22] VITALS (12 sets, daily range): BP systolic 76–138; BP diastolic 45–76
--- NOTE | ~2017-07-22 | HC ---
[facility] [place] [address] CONSULTATION Name: ADRIÁN DAN Ebony Room #: 241-P ADM IN M.R.#: [id number] Admission: 07/22/17 Attend Phys: Nnamdi Molina MD Discharge: Date of : 68 Report #: [id number] THIS REPORT FOR: //name// CC: Nnamdi Velasquez DATE OF SERVICE: 07/23/2017 HISTORY OF PRESENT ILLNESS: This is a 47-year-old female patient who was evaluated by me for the seizure. I reviewed the patient's present record and I reviewed the patient's prior records. This patient has question of seizures versus pseudoseizures in the past. She is on Keppra and lamotrigine. She indicates she had 10 seizures since yesterday. They are grand mal seizure. She is amnesic about it. It is moderately severe. She shakes and the whole body shakes. It looks like she had some postictal period. Initially, her blood sugar was in 30s, but then it kept fluctuating, now the blood sugar has come up and she has not had any further seizure. REVIEW OF SYSTEMS: Indicate that she has prior history of seizures versus pseudoseizure. Otherwise, I carried out the 14-point review of system. It is pretty extensive in this patient, which includes UTI, diabetes, seizure disorder, sleep apnea, nausea, vomiting, chest wall pain, abdominal pain. I do not think it is much relevant to present condition otherwise. PAST MEDICAL HISTORY: Positive for seizure versus pseudoseizure. FAMILY HISTORY: Negative for early age stroke. SOCIAL HISTORY: She does not use alcohol. PHYSICAL EXAMINATION: Indicate she is alert, responsive, able to follow simple commands. Her memory, fund of knowledge is at her baseline. Cranial nerve examination 2-12 is unremarkable. Speech is unremarkable. Neuromuscular examination is symmetrical. She has no meningeal sign. There is no carotid bruit. Temperature is 97.5, pulse is 94, blood pressure is 120/70. LABORATORY DATA: White count is 11.7. She did have a CT scan, which was unremarkable. IMPRESSION AND RECOMMENDATIONS: This patient's clinical presentation is consistent with seizure secondary to hypoglycemia. I reviewed her records. She has not seen ____ for long time and I discussed with her the consequences of such and noncompliance and she understands all that. I think we can just observe her and continue on the same medication. I spent more than 50 minutes of time taking care of this patient today, that was [address] [place] [address] CONSULTATION Name: ADRIÁN DAN Room #: 241-P [facility] IN [facility].#: [id number] Admission: 07/22/17 Attend Phys: Nnamdi Molina MD Discharge: Date of : 68 Report #: [id number] a [id number]-onwp time and most of that time was spent talking to her about the diagnosis, consequences of noncompliance, the medication, seizure versus pseudoseizure. She has multiple questions, which I answered. Thank you very much for this referral and I do not think we will do much, but she does need to take seizure precautions and cannot drive and should follow up with ____ as soon as she is dismissed and she said she will do that. By: 1709 1853 Reed Barrera MD /nt
--- NOTE | ~2017-07-22 | HC ---
[facility] [place] [address] CONSULTATION Name: ADRIÁN DAN Ebony Room #: 354-P ADM IN M.R.#: [id number] Admission: 07/22/17 Attend Phys: Nnamdi Molina MD Discharge: Date of : 68 Report #: [id number] THIS REPORT FOR: //name// CC: Nnamdi Velasquez DATE OF SERVICE: 07/24/2017 ENDOCRINE PROGRESS NOTE I have readjusted the patient's dietary intake and switched to bedtime Glargine, which is a true 24-hour basal insulin. We will now readjust basal and prandial insulin in an attempt to improve glucose control. FBS today, much better at 222. Otherwise, no clinical change. The patient is aware of the necessary modifications and states she will attempt to comply in an improved fashion in the future. <ELECTRONICALLY SIGNED> By: Zaid Nielsen MD 07/24/17 2328 1022 1105 Zaid Nielsen MD /nt
--- NOTE | ~2017-07-22 | EKG ---
[address] [address] ELECTROCARDIOGRAM REPORT Name: ADRIÁN DAN [facility] .R.#: [id number] Admission: 07/22/17 Attend Phys: Nnamdi Molina MD Discharge: Date of : 68 Report #: [id number] THIS REPORT FOR: //name// 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
--- NOTE | ~2017-07-22 | EKG ---
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 : 1970 Requested By: Jorge Tatum Order Number: [id number] MD: Paxton Lane Measurements Intervals [place] Rate: 81 P: 36 HI: 147 QRS: 20 QRSD: 105 T: 49 QT: 389 QTc: 452 Interpretive Statements Sinus rhythm Minimal ST elevation, inferior leads Compared to ECG 07/22/2017 13:57:05 ST (T wave) deviation now present Inferior Q waves no longer present Q waves no longer present T-wave abnormality no longer present Electronically Signed On 07-23-2017 23:11:[address] [email or web address] <ELECTRONICALLY SIGNED> By: Paxton Lane MD 07/23/17 [address] MD /EPI
--- NOTE | ~2017-07-22 | EEG ---
[facility] [place] [address] ELECTROENCEPHALOGRAM Name: ADRIÁN DAN Room #: 241-P [facility] IN M.R.#: [id number] Admission: 07/22/17 Attend Phys: Nnamdi Molina MD Discharge: Date of : 68 Report #: [id number] THIS REPORT FOR: //name// CC: Nnamdi Velasquez DATE OF SERVICE: 07/23/2017 FINDINGS: This patient is being evaluated for the possibility of seizure disorder. EEG was done by placing the electrodes by standard 10-20 system of electrode placement. Both referential and sequential montages were used for recording. Background activity in this patient's EEG is about 10 Hz and 30 microvolts. This is a symmetrical activity. The patient appeared to be drowsy during part of this EEG and that is associated with bilateral slowing. Photic stimulation was unremarkable. Throughout the record, no active epileptiform activity was noted. IMPRESSION: This patient's EEG is unremarkable and does not demonstrate any epileptiform activity. By: 1804 181 Reed Barrera MD /nt
--- NOTE | ~2017-07-22 | HC ---
[facility] [address] [address] CONSULTATION Name: ADRIÁN DAN Room #: 241-P ADM IN M.R.#: [id number] Admission: 07/22/17 Attend Phys: Nnamdi Molina MD Discharge: Date of : 68 Report #: [id number] THIS REPORT FOR: //name// CC: Nnamdi Velasquez DATE OF SERVICE: 07/23/[address] Molina[address] [facility] ICU room 241. SUBJECTIVE: A 47-year-old white female with an approximately 6-year history of diabetes. The patient has been on metformin and insulin ever since. She is on 1000 mg of metformin b.i.d. She has never been on any other oral diabetes medications. She has been on high dose insulin with increasing doses over time and is currently on high dose b.i.d. detemir as well as Humulin b.i.d. and high dose lispro t.i.d. The patient is not on a specific diet, eating 2-3 meals a day and snacking frequently. She has very limited physical activity. She monitors her glucoses and has significant problems with both hyper and hypoglycemia. She states her last hemoglobin A1c was done 6 months ago, and it was 10% or greater. The patient also has a long history of seizure disorder dating back to childhood. It has been somewhat intermittent, but recently has been more of a significant problem. The patient's weight has steadily increased. She states she is attempting to find surgical interventions such as a gastric sleeve. During hospitalization, the patient has been on a variety of insulin doses with significant problems with both hyper and hypoglycemia. She was admitted with decreased state of consciousness, seizures and a significant hypoglycemic episode after taking not only her excessive amount of insulin, but an additional insulin dosage and then failure to eat as scheduled. CURRENT MEDICATIONS: Include Losartan, citalopram, potassium chloride, furosemide, pantoprazole, aripiprazole, diazepam, levetiracetam, doxazosin, lamotrigine, zolpidem, atorvastatin, gabapentin, ropinirole, budesonide, warfarin, cyclobenzaprine, p.r.n. nitroglycerin, ondansetron, hydrocodone, insulin as previously mentioned and possibly other medication. Otherwise, the patient is unable to provide any useful family or past medical history. OBJECTIVE: LABORATORY DATA: Prior TSH from 1 year ago was 1.020. Free T4 from even earlier was 0.9. Prior hemoglobin A1c from many months ago was 9.2. C-peptide was 2.0. More recent labs show a sodium 142, potassium 3.9, chloride 106, CO2 of 29, BUN 9, creatinine 0.6, glucose random was 178, AST 19, lipase 127, [address] [address] CONSULTATION Name: ADRIÁN DAN Room #: 241-P [facility] IN ..#: [id number] Admission: 07/22/17 Attend Phys: Nnamdi Molina MD Discharge: Date of : 68 Report #: [id number] bilirubin less than 0.1, calcium 8.0, phosphorus 4, magnesium 1.8, alkaline phosphatase 65, SGPT 37, total protein 5.3, albumin 2.7. PHYSICAL EXAMINATION: GENERAL: Well-nourished, well-developed, very obese 47-year-old white female, in no acute distress. The patient is alert and oriented and able to answer questions without difficulty. VITAL SIGNS: Height is reported to be 5 feet 2 inches, weight 284 pounds. The patient is afebrile, heart rate 94 and regular, blood pressure 120/71. SKIN: Warm and moist without abnormality. PERRL. NECK: Supple, without masses, tenderness or thyromegaly. CHEST: Clear. HEART: Regular rhythm. ABDOMEN: Obese without masses, tenderness, organomegaly. EXTREMITIES: Show no edema, cyanosis or clubbing. Peripheral pulses 2+ and equal bilaterally. NEUROLOGIC: Grossly intact. ASSESSMENT: 1. Diabetes mellitus, in poor control with alternating hyper and hypoglycemia. 2. 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 3. The patient has been on excessive amounts of insulin leading to frequent episodes of hypoglycemia, which are particularly dangerous in light of her preexisting severe seizure disorder. 4. Hyperlipidemia, status unknown. PLAN: 1. I have given patient's initial instruction on diet and diabetes and strongly suggested full outpatient education after dismissal. While the patient is here, she will be on a caloric restricted 3 meal per day diet and will receive instruction in that diet. I will then consider use of other oral therapy in addition to ongoing metformin to lower insulin requirement. 2. The patient will be switched to Glargine insulin, which is a true once daily basal insulin rather than current high dose detemir. I will then discontinue Humulin, which will peak at a dangerous time for the patient in between meals and was unnecessary and utilize only lispro insulin in much lower doses prior to meals in an attempt to improve glucose control with much lower and safer insulin dosage. Thank you very much for this consultation. I will continue to follow the patient with you for attempted management of diabetes mellitus. <ELECTRONICALLY SIGNED> By: Zaid Nielsen MD 07/23/17 1532 1336 1409 Zaid Nielsen MD /nt
--- NOTE | ~2017-07-22 | HC ---
[facility] [place] [address] CONSULTATION Name: ITZEL DANYCE Ebony Room #: 354-P [facility] IN ..#: [id number] Admission: 07/22/17 Attend Phys: Nnamdi Molina MD Discharge: 07/26/17 Date of : 68 Report #: [id number] THIS REPORT FOR: //name// CC: Nnamdi Velasquez DATE OF SERVICE: 07/25/2017 Glucoses continued to improve with readjusted diet, return to lispro and addition of linagliptin for insulin sparing, as well as appropriate adjustment of q.i.d. insulin. Blood sugars continued to improve in spite of significant reduction in insulin dosage from excessive preadmission levels, which led to recurrent hypoglycemia. FBS lower at 151. ____ glucose past day equals 222 at 0700. I have discussed with the patient and family at great length the need for appropriate dietary compliance in order to allow improved control with much lower insulin doses than prior to admission. It is not clear yet whether the patient understands the implication of these instructions and/or will comply with them in the future after hospital discharge. <ELECTRONICALLY SIGNED> By: Zaid Nielsen MD 07/26/17 2217 1416 31 Zaid Nielsen MD /nt
--- NOTE | ~2017-07-22 | EKG ---
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
--- NOTE | ~2017-07-22 | EKG ---
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
--- NOTE | ~2017-07-22 | HC ---
[facility] [place] [address] CONSULTATION Name: ADRIÁN DAN Ebony Room #: 354-P [facility] IN M.R.#: [id number] Admission: 07/22/17 Attend Phys: Nnamdi Molina MD Discharge: 07/26/17 Date of : 68 Report #: [id number] THIS REPORT FOR: //name// CC: Nnamdi Velasquez DATE OF SERVICE: 07/26/2017 ENDOCRINE PROGRESS NOTE Glucoses continue to improve even with sustained reduction in insulin dosage. No recent hyper or hypoglycemia. I have again attempted to explain to the patient that glucose control can be improved with dietary restriction and reduced dosage of insulin q.i.d., but it is unclear whether she will follow this regimen in the future. The patient is scheduled to be dismissed later today. We will discharge on a diet, glucose monitoring and low dose q.i.d. insulin in the form of lispro t.i.d. with meals and some form of glargine at bedtime. The patient to follow up with her current physician or contact me p.r.n. for followup visit in 2 weeks. <ELECTRONICALLY SIGNED> By: Zaid Nielsen MD 07/27/17 1327 2222 0538 Zaid Nielsen MD /nt
[2017-07-22 13:51] LABS: HEMATOCRIT 36.9 % (37.0-47.0); HEMOGLOBIN 11.3 gm/dL (12.0-15.0); MCHC 30.6 g/dL (28.0-37.0); MCV 78.7 fL (80.0-100.0); PLATELET COUNT 343 thou/uL (150-400); RBC 4.69 mil/uL (4.20-5.00); RDW 21.5 % (10.5-14.5); WBC 8.6 thou/uL (4.0-11.0)
[2017-07-22 13:53] LABS: MANUAL DIFF YES
[2017-07-22 13:59] LABS: ANION GAP 14 mmol/L (7-16); BUN 17 mg/dL (7-18); CALCIUM 8.8 mg/dL (8.5-10.1); CHLORIDE 103 mmol/L (98-107); CO2 23 mmol/L (21-32); CREATININE 0.8 mg/dL (0.6-1.0); GLUCOSE 47 mg/dL (74-106); INR 1.1; POTASSIUM 3.2 mmol/L (3.5-5.1); PROTIME 10.8 Seconds (9.3-11.4); SODIUM 140 mmol/L (136-145)
[2017-07-22 14:05] LABS: ALBUMIN 3.4 g/dL (3.4-5.0); ALKALINE PHOSPHATASE 77 U/L (46-116); DIRECT BILIRUBIN < 0.1 mg/dL (<0.1-0.3); SGOT 18 U/L (15-37); SGPT 41 U/L (30-65); TOTAL BILIRUBIN 0.2 mg/dL (<0.1-1.0); TOTAL PROTEIN 6.7 g/dL (6.4-8.2)
[2017-07-22 14:17] LABS: ABSOLUTE NEUTROPHILS 5.9 thou/uL (1.4-8.2); TOTAL CELL COUNT 100
[2017-07-22 14:18] LABS: ANISOCYTOSIS 1+
[2017-07-22 14:54] LABS: URINE BILIRUBIN NEGATIVE (Negative); URINE BLOOD NEGATIVE (Negative); URINE COLOR YELLOW; URINE GLUCOSE-RANDOM* TRACE (Negative); URINE KETONES TRACE (Negative); URINE LEUKOCYTES-REFLEX NEGATIVE (Negative); URINE PROTEIN (DIPSTICK) NEGATIVE (Negative); URINE UROBILINOGEN 0.2 E.U./dl (0.2-1.0)
[2017-07-22 15:03] LABS: AMP/METHAMP Negative (Negative); BARBITURATES POSITIVE (Negative); BENZODIAZEPINES POSITIVE (Negative); COCAINE Negative (Negative); METHADONE Negative (Negative); OPIATES POSITIVE (Negative); PCP Negative (Negative); THC Negative (Negative)
[2017-07-23] VITALS (42 sets, daily range): BP systolic 94–138; BP diastolic 37–88
[2017-07-23 05:47] LABS: HEMATOCRIT 31.9 % (37.0-47.0); MCH 24.3 pg (26.0-34.0); MCHC 31.2 g/dL (28.0-37.0); MCV 77.6 fL (80.0-100.0); PLATELET COUNT 298 thou/uL (150-400); RBC 4.11 mil/uL (4.20-5.00); RDW 22.2 % (10.5-14.5); WBC 11.7 thou/uL (4.0-11.0)
[2017-07-23 06:24] LABS: ALBUMIN 2.7 g/dL (3.4-5.0); ALKALINE PHOSPHATASE 65 U/L (46-116); ANION GAP 7 mmol/L (7-16); BUN 9 mg/dL (7-18); CHLORIDE 106 mmol/L (98-107); CO2 29 mmol/L (21-32); CREATININE 0.6 mg/dL (0.6-1.0); GLUCOSE 178 mg/dL (74-106); MAGNESIUM 1.8 mg/dL (1.8-2.4); POTASSIUM 3.9 mmol/L (3.5-5.1); SGOT 19 U/L (15-37); SGPT 37 U/L (30-65); SODIUM 142 mmol/L (136-145); TOTAL BILIRUBIN < 0.1 mg/dL (<0.1-1.0); TOTAL PROTEIN 5.3 g/dL (6.4-8.2)
[2017-07-23 08:39] LABS: ABSOLUTE NEUTROPHILS 8.1 thou/uL (1.4-8.2); ANISOCYTOSIS 1+; ATYPICAL LYMPHS 1 %; OVALOCYTES FEW; POIKILOCYTOSIS SLIGHT; TOTAL CELL COUNT 100
[2017-07-23 12:19] LABS: MANUAL DIFF NO
[2017-07-23 18:07] LABS: GLYCOHEMOGLOBIN (HGB A1C) 7.3 % (4.8-5.6)
[2017-07-24 02:58] VITALS: BP 144/82
[2017-07-24 03:41] LABS: HEMOGLOBIN 10.7 gm/dL (12.0-15.0); MCH 24.3 pg (26.0-34.0); MCHC 31.3 g/dL (28.0-37.0); MCV 77.5 fL (80.0-100.0); RBC 4.39 mil/uL (4.20-5.00); RDW 21.5 % (10.5-14.5); WBC 8.5 thou/uL (4.0-11.0)
[2017-07-24 04:12] LABS: CALCIUM 8.5 mg/dL (8.5-10.1); CREATININE 0.7 mg/dL (0.6-1.0)
[2017-07-24 08:28] VITALS: BP 113/66
[2017-07-24 11:49] VITALS: BP 109/55
[2017-07-24 16:09] VITALS: BP 107/52
[2017-07-24 20:00] VITALS: BP 109/70
[2017-07-25 04:00] VITALS: BP 121/69
[2017-07-25 07:14] LABS: HEMATOCRIT 31.8 % (37.0-47.0); HEMOGLOBIN 9.9 gm/dL (12.0-15.0); MCH 24.4 pg (26.0-34.0); MCHC 31.2 g/dL (28.0-37.0); MCV 78.2 fL (80.0-100.0); RBC 4.06 mil/uL (4.20-5.00); RDW 21.4 % (10.5-14.5); WBC 6.5 thou/uL (4.0-11.0)
[2017-07-25 07:30] LABS: CALCIUM 8.9 mg/dL (8.5-10.1); CREATININE 0.6 mg/dL (0.6-1.0); POTASSIUM 3.8 mmol/L (3.5-5.1)
[2017-07-25 07:56] VITALS: BP 117/68
[2017-07-25 11:54] VITALS: BP 107/43
[2017-07-25 15:08] VITALS: BP 100/50
[2017-07-25 19:56] VITALS: BP 108/51
[2017-07-26] VITALS (7 sets, daily range): BP systolic 115–132; BP diastolic 45–78
[2017-07-26] MEDS ORDERED: GLUCOPHAGE1000 MG PO (12:16)
[2017-07-26] MEDS ORDERED: LAMICTAL 25 MG25 M1 PO (12:16)
[2017-07-26] MEDS ORDERED: TRADJENTA5 MG PO (12:16)
[2017-07-26] MEDS ORDERED: HUMALOG100 UNIT/1 SUBQ (14:17)
[2017-07-26] MEDS ORDERED: TOUJEO SOL300 UNIT/1 SUBQ (14:19)
[2017-07-26 16:27] LABS: INR 1.4; PROTIME 14.2 Seconds (9.3-11.4)
== END 2017-07-26 17:25 | disposition home or self-care (01) | DRG 100 ==
LOC: ER 13:32 → ICU 15:38 → 3W 15:38 → EROBS 15:38 → ICU 17:36 → 3W 07-23 21:17
PROVIDERS: Emergency Medicine; Hospitalist; Internal Medicine Endocrinology, Diabetes & Metabolism; Nurse Practitioner
DX: G40.901 Epilepsy, unspecified, not intractable, with status epilepticus (principal); E43 Unspecified severe protein-calorie malnutrition; J44.1 Chronic obstructive pulmonary disease with (acute) exacerbation; Z68.44 Body mass index [BMI] 60.0-69.9, adult; I10 Essential (primary) hypertension; H40.9 Unspecified glaucoma; N28.1 Cyst of kidney, acquired; F41.9 Anxiety disorder, unspecified; F32.9 Major depressive disorder, single episode, unspecified; F43.10 Post-traumatic stress disorder, unspecified; Z86.718 Personal history of other venous thrombosis and embolism; E78.00 Pure hypercholesterolemia, unspecified; I50.9 Heart failure, unspecified; L40.9 Psoriasis, unspecified; J44.9 Chronic obstructive pulmonary disease, unspecified; F31.9 Bipolar disorder, unspecified; G25.81 Restless legs syndrome; E11.649 Type 2 diabetes mellitus with hypoglycemia without coma; E78.5 Hyperlipidemia, unspecified; E11.39 Type 2 diabetes mellitus with other diabetic ophthalmic complication; E87.6 Hypokalemia; R60.0 Localized edema; G47.33 Obstructive sleep apnea (adult) (pediatric); D64.9 Anemia, unspecified; E66.01 Morbid (severe) obesity due to excess calories; K21.9 Gastro-esophageal reflux disease without esophagitis; Z79.84 Long term (current) use of oral hypoglycemic drugs; Z79.899 Other long term (current) drug therapy; Z79.4 Long term (current) use of insulin; Z88.8 Allergy status to other drugs, medicaments and biological substances; Z88.0 Allergy status to penicillin; Z88.2 Allergy status to sulfonamides; Z88.6 Allergy status to analgesic agent; Z91.048 Other nonmedicinal substance allergy status; Z91.040 Latex allergy status; Z87.891 Personal history of nicotine dependence; Z90.711 Acquired absence of uterus with remaining cervical stump; Z86.711 Personal history of pulmonary embolism; Z99.81 Dependence on supplemental oxygen; Z79.01 Long term (current) use of anticoagulants; Z91.14 Patient's other noncompliance with medication regimen; Z23 Encounter for immunization
CPT/HCPCS: 10078; 10779

== ENCOUNTER 2017-10-18 14:06 | Emergency (ER) | payer OTHER ==
[~2017-10-18] VITALS: Ht 162.6 cm; Wt 113.4 kg
--- NOTE | ~2017-10-18 | EKG ---
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
[~2017-10-18 14:06] MED LIST changes: +COUMADIN7.5 MG PO; +ENOXAPARIN150 MG/11 SUBQ; +LAMICTAL 25 MG25 M1 PO; +PRADAXA150 MG PO; +TOUJEO SOL300 UNIT/1 SUBQ; +ZPAK PO
[2017-10-18 14:12] VITALS: BP 119/78
[2017-10-18 15:08] LABS: ABSOLUTE NEUTROPHILS 6.6 thou/uL (1.4-8.2); EOSINOPHILS 1.2 % (0.0-3.0); HEMATOCRIT 32.7 % (37.0-47.0); HEMOGLOBIN 10.1 gm/dL (12.0-15.0); LYMPHOCYTES 21.6 % (24.0-44.0); MCH 23.6 pg (26.0-34.0); MCHC 30.9 g/dL (28.0-37.0); MCV 76.3 fL (80.0-100.0); MONOCYTES 5.6 % (1.0-8.0); PLATELET COUNT 397 thou/uL (150-400); POLYS 70.6 % (36.0-66.0); RBC 4.29 mil/uL (4.20-5.00); WBC 9.4 thou/uL (4.0-11.0)
[2017-10-18 15:16] LABS: ANION GAP 8 mmol/L (7-16); BUN 17 mg/dL (7-18); CALCIUM 8.7 mg/dL (8.5-10.1); CHLORIDE 103 mmol/L (98-107); CO2 29 mmol/L (21-32); CREATININE 0.7 mg/dL (0.6-1.0); GLUCOSE 179 mg/dL (74-106); POTASSIUM 3.9 mmol/L (3.5-5.1); SODIUM 140 mmol/L (136-145)
[2017-10-18 15:24] LABS: TROPONIN-I < 0.04 ng/mL (<0.06)
[2017-10-18 15:26] LABS: APTT 24.5 Seconds (24.5-32.8); PROTIME 9.7 Seconds (9.3-11.4)
== END 2017-10-18 16:10 | disposition home or self-care (01) ==
LOC: ER 14:06
PROVIDERS: Nurse Practitioner
DX: R07.89 Other chest pain (principal); E11.9 Type 2 diabetes mellitus without complications; Q61.3 Polycystic kidney, unspecified; F41.9 Anxiety disorder, unspecified; F43.10 Post-traumatic stress disorder, unspecified; E78.00 Pure hypercholesterolemia, unspecified; J44.9 Chronic obstructive pulmonary disease, unspecified; I11.0 Hypertensive heart disease with heart failure; I50.9 Heart failure, unspecified; G47.30 Sleep apnea, unspecified; L40.9 Psoriasis, unspecified; G25.81 Restless legs syndrome; F31.9 Bipolar disorder, unspecified; K21.9 Gastro-esophageal reflux disease without esophagitis; Z86.2 Personal history of diseases of the blood and blood-forming organs and certain disorders involving the immune mechanism; Z90.710 Acquired absence of both cervix and uterus; Z86.718 Personal history of other venous thrombosis and embolism; Z86.711 Personal history of pulmonary embolism; Z79.4 Long term (current) use of insulin; Z88.6 Allergy status to analgesic agent; Z88.0 Allergy status to penicillin; Z88.2 Allergy status to sulfonamides; Z91.040 Latex allergy status; Z88.8 Allergy status to other drugs, medicaments and biological substances; Z87.891 Personal history of nicotine dependence

== ENCOUNTER 2017-11-27 14:43 | Inpatient (IN) | payer OTHER ==
[~2017-11-27] VITALS: Ht 157.5 cm; Wt 133.1 kg
--- NOTE | ~2017-11-27 | EKG ---
[place] [address] [facility] [employer] 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 : 1970 Requested By: Sergio Teixeira Order Number: [id number] MD: Azael Weber Measurements Intervals [place] Rate: 102 P: 35 OR: 154 QRS: 15 QRSD: 102 T: 54 QT: 336 QTc: 438 Interpretive Statements Sinus tachycardia Consider inferior infarct Compared to ECG 10/18/2017 14:22:52 No significant change was found Electronically Signed On 11-28-2017 8:09:44 PATIENT SERVICE COORDINATOR by Azael Weber [email or web address] <ELECTRONICALLY SIGNED> By: Azael Weber MD, [facility] 11/28/17 0809 1449 1449 Azael Weber MD, [facility] /EPI
[2017-11-27 15:41] LABS: BE(vivo) 8.2 mmol/L (-2 to +3); HCO3 34.2 mmol/L (22.0-26.0); PO2 68.3 mmHg (80.0-100.0); pH 7.404 (7.360-7.450); sO2 93.3 % (92.0-98.0)
[2017-11-27 15:50] LABS: ABSOLUTE NEUTROPHILS 4.3 thou/uL (1.4-8.2); BASOPHILS 0.9 % (0.0-2.0); EOSINOPHILS 2.7 % (0.0-3.0); HEMATOCRIT 29.2 % (37.0-47.0); HEMOGLOBIN 9.2 gm/dL (12.0-15.0); LYMPHOCYTES 37.9 % (24.0-44.0); MCHC 31.5 g/dL (28.0-37.0); MCV 76.4 fL (80.0-100.0); MONOCYTES 7.2 % (1.0-8.0); PLATELET COUNT 367 thou/uL (150-400); POLYS 51.3 % (36.0-66.0); RBC 3.82 mil/uL (4.20-5.00); RDW 19.5 % (10.5-14.5); WBC 8.4 thou/uL (4.0-11.0)
[2017-11-27 15:59] LABS: ANION GAP 3 mmol/L (7-16); BUN 15 mg/dL (7-18); CHLORIDE 105 mmol/L (98-107); CO2 35 mmol/L (21-32); CREATININE 0.5 mg/dL (0.6-1.0); GLUCOSE 41 mg/dL (74-106); POTASSIUM 3.4 mmol/L (3.5-5.1); SODIUM 143 mmol/L (136-145)
[2017-11-27 16:02] LABS: PROTIME 9.1 Seconds (9.3-11.4)
[2017-11-27 16:06] LABS: ANISOCYTOSIS 2+; HYPOCHROMASIA 1+; OVALOCYTES 1+; POLYCHROMASIA 1+
[2017-11-27 16:07] LABS: ALBUMIN 3.1 g/dL (3.4-5.0); SGOT 21 U/L (15-37); SGPT 43 U/L (30-65); TOTAL PROTEIN 6.5 g/dL (6.4-8.2); TROPONIN-I < 0.04 ng/mL (<0.06)
[2017-11-27 16:19] LABS: TOTAL BILIRUBIN 0.1 mg/dL (<0.1-1.0)
[2017-11-27 18:28] VITALS: BP 129/57
[2017-11-27] MEDS ORDERED: PREDNISONE 20 M20 MG PO (18:31)
[2017-11-27] MEDS ORDERED: LEVAQUIN 500 M500 M2 PO (18:31)
[2017-11-27] MEDS ORDERED: PRADAXA150 MG PO (22:51)
[2017-11-28 00:04] VITALS: BP 154/69
[2017-11-28 03:47] VITALS: BP 142/77
[2017-11-28 07:10] VITALS: BP 127/61
[2017-11-28 07:29] LABS: CALCIUM 8.5 mg/dL (8.5-10.1); CREATININE 0.7 mg/dL (0.6-1.0)
[2017-11-28 07:30] LABS: POTASSIUM 4.8 mmol/L (3.5-5.1)
[2017-11-28 15:15] VITALS: BP 126/54
[2017-11-28 19:20] VITALS: BP 153/77
[2017-11-29 03:37] VITALS: BP 142/71
[2017-11-29 08:05] VITALS: BP 126/65
[2017-11-29 15:20] VITALS: BP 111/57
[2017-11-29 19:12] VITALS: BP 118/65
[2017-11-30 03:05] VITALS: BP 132/63
[2017-11-30 07:29] VITALS: BP 126/73
[2017-11-30 15:30] VITALS: BP 126/70
[2017-11-30 19:05] VITALS: BP 134/72
[2017-12-01 03:55] VITALS: BP 119/64
[2017-12-01 08:36] VITALS: BP 118/73
[2017-12-01 20:00] VITALS: BP 122/73
[2017-12-02 04:00] VITALS: BP 133/82
[2017-12-02 07:37] VITALS: BP 139/79
[2017-12-02 15:20] VITALS: BP 126/59
[2017-12-02 19:25] VITALS: BP 139/72
[2017-12-03 03:35] VITALS: BP 134/78
[2017-12-03 05:57] LABS: CALCIUM 8.6 mg/dL (8.5-10.1); CREATININE 0.7 mg/dL (0.6-1.0); HEMATOCRIT 31.9 % (37.0-47.0); HEMOGLOBIN 9.6 gm/dL (12.0-15.0); MCH 23.1 pg (26.0-34.0); MCHC 30.2 g/dL (28.0-37.0); MCV 76.5 fL (80.0-100.0); POTASSIUM 3.7 mmol/L (3.5-5.1); RBC 4.17 mil/uL (4.20-5.00); RDW 19.8 % (10.5-14.5)
[2017-12-03 07:20] VITALS: BP 111/61
[2017-12-03 12:19] VITALS: BP 121/67
[2017-12-03 14:53] VITALS: BP 121/67
[2017-12-03 15:25] VITALS: BP 125/68
[2017-12-03 19:20] VITALS: BP 120/72
[2017-12-04 03:40] VITALS: BP 148/69
[2017-12-04 08:35] VITALS: BP 111/72
[2017-12-04 16:16] VITALS: BP 126/69
[2017-12-04 21:12] VITALS: BP 131/68
[2017-12-05 04:15] VITALS: BP 132/70
[2017-12-05 06:43] LABS: HEMATOCRIT 31.3 % (37.0-47.0); HEMOGLOBIN 9.5 gm/dL (12.0-15.0); MCHC 30.4 g/dL (28.0-37.0); MCV 75.7 fL (80.0-100.0); PLATELET COUNT 451 thou/uL (150-400); RBC 4.14 mil/uL (4.20-5.00); RDW 19.8 % (10.5-14.5); WBC 12.9 thou/uL (4.0-11.0)
[2017-12-05 06:52] LABS: CREATININE 0.6 mg/dL (0.6-1.0); POTASSIUM 4.3 mmol/L (3.5-5.1)
[2017-12-05 07:20] VITALS: BP 108/47
[2017-12-05 08:25] LABS: ABSOLUTE NEUTROPHILS 11.5 thou/uL (1.4-8.2); ANISOCYTOSIS 2+; HYPOCHROMASIA 1+; MICROCYTES 2+; POLYCHROMASIA OCCASIONAL
[2017-12-05 08:26] LABS: OVALOCYTES 1+
[2017-12-05 15:20] VITALS: BP 111/65
[2017-12-05 19:20] VITALS: BP 147/73
[2017-12-06 04:04] LABS: HEMATOCRIT 29.9 % (37.0-47.0); HEMOGLOBIN 9.1 gm/dL (12.0-15.0); MCHC 30.3 g/dL (28.0-37.0); PLATELET COUNT 420 thou/uL (150-400); RBC 3.94 mil/uL (4.20-5.00); RDW 19.3 % (10.5-14.5); WBC 11.4 thou/uL (4.0-11.0)
[2017-12-06 04:10] VITALS: BP 151/82
[2017-12-06 04:22] LABS: CALCIUM 8.4 mg/dL (8.5-10.1); CREATININE 0.6 mg/dL (0.6-1.0); POTASSIUM 4.5 mmol/L (3.5-5.1)
[2017-12-06 04:54] LABS: ABSOLUTE NEUTROPHILS 9.6 thou/uL (1.4-8.2); ANISOCYTOSIS 2+; HYPOCHROMASIA SLIGHT; LARGE PLATELETS RARE; POLYCHROMASIA OCCASIONAL
[2017-12-06 07:06] VITALS: BP 134/74
[2017-12-06 10:58] LABS: MAGNESIUM 2.2 mg/dL (1.8-2.4)
[2017-12-06 15:22] VITALS: BP 148/67
[2017-12-06] MEDS ORDERED: PREDNISONE 20 M20 MG PO (16:35)
[2017-12-06] MEDS ORDERED: TOUJEO SOL300 UNIT/1 SUBQ (16:35)
[2017-12-06 17:06] VITALS: BP 121/67
[2017-12-11 14:14] VITALS: BP 121/67
== END 2017-12-06 17:25 | disposition home health service (06) | DRG 871 ==
LOC: ER 14:43 → 4E 19:36 → EROBS 19:36 → 4E 20:31
PROVIDERS: Hospitalist; Nurse Practitioner Family; Physician Assistant
DX: A41.9 Sepsis, unspecified organism (principal); J96.21 Acute and chronic respiratory failure with hypoxia; J96.22 Acute and chronic respiratory failure with hypercapnia; J44.1 Chronic obstructive pulmonary disease with (acute) exacerbation; E66.2 Morbid (severe) obesity with alveolar hypoventilation; I50.32 Chronic diastolic (congestive) heart failure; I42.9 Cardiomyopathy, unspecified; Q61.3 Polycystic kidney, unspecified; Z68.43 Body mass index [BMI] 50.0-59.9, adult; H40.9 Unspecified glaucoma; F41.9 Anxiety disorder, unspecified; F43.10 Post-traumatic stress disorder, unspecified; E78.00 Pure hypercholesterolemia, unspecified; I11.0 Hypertensive heart disease with heart failure; L40.9 Psoriasis, unspecified; F31.9 Bipolar disorder, unspecified; K21.9 Gastro-esophageal reflux disease without esophagitis; J20.8 Acute bronchitis due to other specified organisms; D64.9 Anemia, unspecified; G25.81 Restless legs syndrome; I27.20 Pulmonary hypertension, unspecified; E11.65 Type 2 diabetes mellitus with hyperglycemia; Z86.711 Personal history of pulmonary embolism; Z86.718 Personal history of other venous thrombosis and embolism; Z90.710 Acquired absence of both cervix and uterus; Z79.899 Other long term (current) drug therapy; Z79.4 Long term (current) use of insulin; Z88.0 Allergy status to penicillin; Z88.2 Allergy status to sulfonamides; Z88.8 Allergy status to other drugs, medicaments and biological substances; Z88.6 Allergy status to analgesic agent; Z91.040 Latex allergy status; Z82.49 Family history of ischemic heart disease and other diseases of the circulatory system; Z87.891 Personal history of nicotine dependence
CPT/HCPCS: 10084

== ENCOUNTER 2018-01-01 15:01 | Emergency (ER) | payer OTHER ==
[~2018-01-01] VITALS: Ht 162.6 cm; Wt 122.5 kg
--- NOTE | ~2018-01-01 | EKG ---
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 : 1970 Requested By: Bobby Fleming Order Number: [id number] MD: Azael Weber Measurements Intervals [place] Rate: 92 P: 30 ND: 160 QRS: 10 QRSD: 94 T: 29 QT: 373 QTc: 462 Interpretive Statements Sinus rhythm No significant abnormality Compared to ECG 11/27/2017 14:49:46 Sinus tachycardia no longer present Electronically Signed On 01-02-2018 8:23:20 CDT by Azael Weber [email or web address] <ELECTRONICALLY SIGNED> By: Azael Weber MD, [facility] 01/02/18 0823 1547 154 Azael Weber MD, [facility] /EPI
[2018-01-01 16:12] LABS: ABSOLUTE NEUTROPHILS 4.6 thou/uL (1.4-8.2); BASOPHILS 1.3 % (0.0-2.0); EOSINOPHILS 2.8 % (0.0-3.0); HEMATOCRIT 29.8 % (37.0-47.0); HEMOGLOBIN 9.2 gm/dL (12.0-15.0); LYMPHOCYTES 25.2 % (24.0-44.0); MCH 22.4 pg (26.0-34.0); MCHC 30.8 g/dL (28.0-37.0); MCV 72.8 fL (80.0-100.0); MONOCYTES 5.9 % (1.0-8.0); PLATELET COUNT 367 thou/uL (150-400); POLYS 64.8 % (36.0-66.0); RBC 4.09 mil/uL (4.20-5.00); RDW 19.8 % (10.5-14.5); WBC 7.1 thou/uL (4.0-11.0)
[2018-01-01 16:20] LABS: ANION GAP 6 mmol/L (7-16); BUN 15 mg/dL (7-18); CALCIUM 8.5 mg/dL (8.5-10.1); CHLORIDE 103 mmol/L (98-107); CO2 29 mmol/L (21-32); CREATININE 0.4 mg/dL (0.6-1.0); GLUCOSE 127 mg/dL (74-106); POTASSIUM 4.5 mmol/L (3.5-5.1); SODIUM 138 mmol/L (136-145)
[2018-01-01 16:29] LABS: TROPONIN-I < 0.04 ng/mL (<0.06)
[2018-01-01 16:33] LABS: ANISOCYTOSIS 2+; HYPOCHROMASIA 2+; MICROCYTES 1+; OVALOCYTES 1+; SCHISTOCYTES OCCASIONAL
[2018-01-01] MEDS ORDERED: DOXYCYCLINE 10100 MG PO (18:35)
== END 2018-01-01 19:38 | disposition home or self-care (01) ==
LOC: ER 15:01
PROVIDERS: Nurse Practitioner
DX: J18.9 Pneumonia, unspecified organism (principal); M79.604 Pain in right leg; I11.0 Hypertensive heart disease with heart failure; I50.9 Heart failure, unspecified; E11.9 Type 2 diabetes mellitus without complications; J44.9 Chronic obstructive pulmonary disease, unspecified; Z87.891 Personal history of nicotine dependence; Z88.2 Allergy status to sulfonamides; Z88.0 Allergy status to penicillin; Z88.8 Allergy status to other drugs, medicaments and biological substances

== ENCOUNTER → 2018-01-29 | Outpatient (CLI) | payer OTHER | LOC: RAD 06:37 | DX: I51.7 Cardiomegaly (principal); J44.9 Chronic obstructive pulmonary disease, unspecified; J96.11 Chronic respiratory failure with hypoxia; L92.8 Other granulomatous disorders of the skin and subcutaneous tissue; J45.41 Moderate persistent asthma with (acute) exacerbation ==

== ENCOUNTER 2018-02-27 15:55 | Inpatient (IN) | payer OTHER ==
[~2018-02-27] VITALS: Ht 157.5 cm; Wt 122.7 kg
--- NOTE | ~2018-02-27 | CATHLAB ---
[facility] [address] [place] [address] INVASIVE PROCEDURE REPORT Name: ADRIÁN DAN Room #: 454-P [facility]#: [id number] Admission: 02/27/18 Attend Phys: Taylor Ac Discharge: 03/05/18 Date of : 68 Date of Service: 03/05/18 1510 Report #: [id number] THIS REPORT FOR: //name// APPROVED REPORT Study performed: 03/05/2018 07:08:21 Patient Details Patient Status: In-Patient Room #: The patient is a 48 year-old female Event Personnel Camden Pearson Evp And Chief Operating Officer, Godwin Wolfe RN i&c technician Performed Left Heart Cath w/or w/o Coronaries [id number] [facility] Indication Dyspnea, Positive stress test, Chest pain Risk Factors Obesity, HypercholesterolemiaPhysical Activity, Hypertension, Diabetes Procedure Narrative The Right Groin^ was infiltrated with 1% Lidocaine subcutaneous anesthesia. A PINNACLE 4FR Sheath #[id number] sheath was inserted into the RFA^. Coronary angiography was performed using coronary diagnostic catheters. The right coronary system was accessed and visualized with a JR4 catheter. The left coronary system was accessed and visualized with a JL4 catheter. The left ventricle was accessed and visualized with a PIGTAIL catheter. Left ventricular/Aortic Valve gradient assessed via catheter pullback. Left ventriculogram was performed in 30 degree projection. Hemostasis was obtained with manual pressure following sheath removal without any complications. There was no hematoma. Intraoperative Conscious Sedation Sedation start time: 7.42 Case end Time: 7.54 Fluoro Time: 1.30 minutes Dose: DAP 6084 cGycm2 719 mGy Contrast Type and Amount: Omnipaque 100 ml Coronary Angiography [place] [address] [place] [address] INVASIVE PROCEDURE REPORT Name: ADRIÁN DAN Room #: 454-P [facility].#: [id number] Admission: 02/27/18 Attend Phys: Taylor Ac Discharge: 03/05/18 Date of : 68 Date of Service: 03/05/18 1510 Report #: [id number] The patient's coronary anatomy is co- dominant. Diagnostic Cath Left Main Patent vessel, with no flow-limiting lesions. LAD Moderate size caliber vessel, traveling down the anterior wall and wrapping around the apex. Patent vessel, with no flow-limiting lesions. Diagonal 1 Small-caliber vessel, with no flow-limiting lesions. Circumflex Codominant vessel, with no flow-limiting lesions. OM1 Has an early takeoff, patent with no flow-limiting lesions. OM2 Moderate size caliber vessel, with no flow-limiting lesions. Right Coronary Moderate size caliber vessel, with no flow-limiting lesions. R PDA Patent vessel, with no flow-limiting lesions. Left Ventriculography The left ventricle is normal in size with normal contractility. The left ventricular ejection fraction is estimated to be 50%. Hemodynamics The aortic pressure is 175/87 mmHg with a mean of 97 mmHg. The left ventricular pressure is 181/26 mmHg with a mean of mmHg. The left ventricular end diastolic pressure is 41 mmHg. Conclusion 1. Angiographically normal coronary arteries. 2. Codominant system. 3. Low-normal LV systolic function. 4. Recommend medical therapy. <ELECTRONICALLY SIGNED> By: Camden Pearson MD 03/05/18 1510 09 09 Camden Pearson MD /INF
--- NOTE | ~2018-02-27 | EKG ---
[place] [address] [address] [facility] [place] [address] ELECTROCARDIOGRAM REPORT Name: ADRIÁN DAN Room #: 454-P [facility] [place] ..#: [id number] Admission: 02/27/18 Attend Phys: Taylor Cruz Discharge: Date of : 68 Report #: [id number] THIS REPORT FOR: //name// 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: thesingj : 1970 Requested By: Costa Hernandez Order Number: [id number] MD: Azael Weber Measurements Intervals [place] Rate: 76 P: 20 NV: 146 QRS: 9 QRSD: 132 T: 15 QT: 397 QTc: 447 Interpretive Statements Sinus rhythm Normal tracing Compared to ECG 01/01/2018 15:47:23 No significant abnormality Electronically Signed On 02-28-2018 8:01:59 CDT by Azael Weber [email or web address] <ELECTRONICALLY SIGNED> By: Azael Weber MD, [facility] 02/28/18 0801 1720 1720 Azael Weber MD, [facility] /EPI
[2018-02-27 16:40] VITALS: BP 121/54
[2018-02-27 17:09] LABS: HEMATOCRIT 30.8 % (37.0-47.0); HEMOGLOBIN 9.9 gm/dL (12.0-15.0); MCHC 32.2 g/dL (28.0-37.0); MCV 74.6 fL (80.0-100.0); PLATELET COUNT 379 thou/uL (150-400); RBC 4.13 mil/uL (4.20-5.00); RDW 22.4 % (10.5-14.5); WBC 7.2 thou/uL (4.0-11.0)
[2018-02-27 17:17] LABS: ANION GAP 5 mmol/L (7-16); BUN 13 mg/dL (7-18); CALCIUM 9.4 mg/dL (8.5-10.1); CHLORIDE 105 mmol/L (98-107); CO2 32 mmol/L (21-32); CREATININE 0.6 mg/dL (0.6-1.0); GLUCOSE 61 mg/dL (74-106); POTASSIUM 3.5 mmol/L (3.5-5.1); SODIUM 142 mmol/L (136-145)
[2018-02-27 17:26] LABS: ALBUMIN 3.5 g/dL (3.4-5.0); LIPASE 97 U/L (73-393); SGOT 16 U/L (15-37); SGPT 29 U/L (30-65); TOTAL BILIRUBIN 0.2 mg/dL (<0.1-1.0); TOTAL PROTEIN 6.7 g/dL (6.4-8.2); TROPONIN-I < 0.04 ng/mL (<0.06)
[2018-02-27 17:37] LABS: ABSOLUTE NEUTROPHILS 4.4 thou/uL (1.4-8.2)
[2018-02-27 17:38] LABS: ANISOCYTOSIS 1+; OVALOCYTES FEW
[2018-02-27 19:41] VITALS: BP 123/47
[2018-02-27 19:56] VITALS: BP 122/56
[2018-02-27] MEDS ORDERED: LAMICTAL100 MG PO (21:19)
[2018-02-27] MEDS ORDERED: GLUCOPHAGE XR500 MG PO (21:23)
[2018-02-27 23:46] VITALS: BP 96/54
[2018-02-28] VITALS: BP 96/54
[2018-02-28 00:54] LABS: CHOLESTEROL 106 mg/dL (<200); HDL CHOLESTEROL 45 mg/dL (>40); LDL CHOLESTEROL 43 mg/dL (<100); TC:HDL 2.4 Ratio (Not establshd); TRIGLYCERIDE 91 mg/dL (<150); VLDL 18 mg/dL (<40)
[2018-02-28 03:36] VITALS: BP 113/67
[2018-02-28 08:00] VITALS: BP 106/58; BP 113/67
[2018-02-28 16:00] VITALS: BP 130/62
[2018-02-28 19:14] VITALS: BP 116/69
[2018-03-01 02:06] LABS: GLYCOHEMOGLOBIN (HGB A1C) 6.7 % (4.8-5.6)
[2018-03-01 08:23] VITALS: BP 116/61
[2018-03-01 16:22] VITALS: BP 124/58
[2018-03-01 20:00] VITALS: BP 152/92
[2018-03-02 04:35] LABS: ALBUMIN 3.2 g/dL (3.4-5.0); CALCIUM 8.9 mg/dL (8.5-10.1); CREATININE 0.6 mg/dL (0.6-1.0); POTASSIUM 4.2 mmol/L (3.5-5.1); TOTAL BILIRUBIN 0.2 mg/dL (<0.1-1.0); TOTAL PROTEIN 6.4 g/dL (6.4-8.2)
[2018-03-02 07:43] VITALS: BP 105/55
[2018-03-02 15:46] VITALS: BP 118/52
[2018-03-02 20:00] VITALS: BP 108/84
[2018-03-03 04:51] VITALS: BP 119/57
[2018-03-03 08:02] VITALS: BP 120/89
[2018-03-03 15:55] VITALS: BP 122/49
[2018-03-03 20:00] VITALS: BP 100/57
[2018-03-04 03:49] VITALS: BP 103/65
[2018-03-04 07:29] VITALS: BP 139/73
[2018-03-04 15:20] VITALS: BP 115/61
[2018-03-04 20:32] VITALS: BP 120/60
[2018-03-05] VITALS (7 sets, daily range): BP systolic 101–148; BP diastolic 46–70
[2018-03-05] MEDS ORDERED: FLEXERIL PO (10:49)
[2018-03-05] MEDS ORDERED: PRADAXA150 MG PO (10:49)
[2018-03-05] MEDS ORDERED: NORCO 10-325 T1 EACH PO (10:50)
[2018-03-05] MEDS ORDERED: ZOFRAN ODT4 MG DISSOLVE (10:52)
== END 2018-03-05 12:25 | disposition home or self-care (01) | DRG 287 ==
LOC: ER 15:55 → EROBS 18:50 → 4W 18:50 → ENTRNSPT 03-05 12:19 → EDTRNSPTSTS 03-05 12:20 → 4W 03-05 12:25
PROVIDERS: Emergency Medicine; Hospitalist; Nurse Practitioner Acute Care
DX: R07.89 Other chest pain (principal); J96.11 Chronic respiratory failure with hypoxia; Z68.42 Body mass index [BMI] 45.0-49.9, adult; E11.9 Type 2 diabetes mellitus without complications; G47.33 Obstructive sleep apnea (adult) (pediatric); E66.01 Morbid (severe) obesity due to excess calories; N28.1 Cyst of kidney, acquired; H40.9 Unspecified glaucoma; F41.9 Anxiety disorder, unspecified; F43.10 Post-traumatic stress disorder, unspecified; E78.00 Pure hypercholesterolemia, unspecified; I50.9 Heart failure, unspecified; I11.0 Hypertensive heart disease with heart failure; J44.9 Chronic obstructive pulmonary disease, unspecified; L40.9 Psoriasis, unspecified; G25.81 Restless legs syndrome; F31.9 Bipolar disorder, unspecified; K21.9 Gastro-esophageal reflux disease without esophagitis; Z90.710 Acquired absence of both cervix and uterus; Z86.718 Personal history of other venous thrombosis and embolism; Z86.711 Personal history of pulmonary embolism; Z79.4 Long term (current) use of insulin; Z79.899 Other long term (current) drug therapy; Z79.51 Long term (current) use of inhaled steroids; Z87.891 Personal history of nicotine dependence; Z91.040 Latex allergy status; Z88.0 Allergy status to penicillin; Z99.81 Dependence on supplemental oxygen; Z88.2 Allergy status to sulfonamides; Z88.8 Allergy status to other drugs, medicaments and biological substances; Z91.048 Other nonmedicinal substance allergy status; Z82.49 Family history of ischemic heart disease and other diseases of the circulatory system
CPT/HCPCS: 10045

== ENCOUNTER → 2018-04-30 | Outpatient (CLI) | payer OTHER ==
[~2018-04-30] MED LIST changes: +GLUCOPHAGE XR500 MG PO; +ZOFRAN ODT4 MG DISSOLVE
== END ==
LOC: MRI 09:46
DX: M25.511 Pain in right shoulder (principal); M25.611 Stiffness of right shoulder, not elsewhere classified; G89.29 Other chronic pain; J44.9 Chronic obstructive pulmonary disease, unspecified

== ENCOUNTER 2018-06-24 13:32 | Inpatient (IN) | payer OTHER ==
[~2018-06-24] VITALS: Ht 157.5 cm; Wt 116.6 kg
--- NOTE | ~2018-06-24 | EKG ---
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
[2018-06-24 13:33] VITALS: BP 126/66
[2018-06-24 14:59] LABS: ABSOLUTE NEUTROPHILS 8.7 thou/uL (1.4-8.2); BASOPHILS 1.1 % (0.0-2.0); EOSINOPHILS 1.2 % (0.0-3.0); HEMATOCRIT 31.2 % (37.0-47.0); HEMOGLOBIN 10.1 gm/dL (12.0-15.0); LYMPHOCYTES 19.2 % (24.0-44.0); MCH 25.1 pg (26.0-34.0); MCHC 32.4 g/dL (28.0-37.0); MCV 77.6 fL (80.0-100.0); PLATELET COUNT 340 thou/uL (150-400); POLYS 74.5 % (36.0-66.0); RBC 4.02 mil/uL (4.20-5.00); RDW 16.9 % (10.5-14.5); WBC 11.6 thou/uL (4.0-11.0)
[2018-06-24 15:11] LABS: BE(vivo) 1.2 mmol/L (-2 to +3); HCO3 25.9 mmol/L (22.0-26.0); PCO2 41.4 mmHg (35.0-45.0); pH 7.414 (7.360-7.450); sO2 98.2 % (92.0-98.0)
[2018-06-24 15:16] LABS: PROTIME 9.7 Seconds (9.3-11.4)
[2018-06-24 15:28] LABS: ANION GAP 3 mmol/L (7-16); BUN 12 mg/dL (7-18); CALCIUM 8.6 mg/dL (8.5-10.1); CHLORIDE 104 mmol/L (98-107); CO2 29 mmol/L (21-32); CREATININE 0.4 mg/dL (0.6-1.0); GLUCOSE 164 mg/dL (74-106); POTASSIUM 4.9 mmol/L (3.5-5.1); SODIUM 136 mmol/L (136-145)
[2018-06-24 15:38] LABS: SGOT 32 U/L (15-37); SGPT 48 U/L (30-65); TOTAL BILIRUBIN 0.2 mg/dL (<0.1-1.0); TOTAL PROTEIN 6.3 g/dL (6.4-8.2); TROPONIN-I <0.06 ng/mL (<0.06)
[2018-06-24 17:29] VITALS: BP 126/66
[2018-06-24 17:52] VITALS: BP 134/66
[2018-06-24 18:08] VITALS: BP 128/59
[2018-06-24 20:05] VITALS: BP 125/77
[2018-06-25 03:40] VITALS: BP 121/64
[2018-06-25 05:34] LABS: ABSOLUTE NEUTROPHILS 13.4 thou/uL (1.4-8.2); BASOPHILS 0.8 % (0.0-2.0); HEMATOCRIT 34.1 % (37.0-47.0); HEMOGLOBIN 10.8 gm/dL (12.0-15.0); LYMPHOCYTES 5.9 % (24.0-44.0); MCH 24.7 pg (26.0-34.0); MCHC 31.8 g/dL (28.0-37.0); MCV 77.6 fL (80.0-100.0); MONOCYTES 0.6 % (1.0-8.0); PLATELET COUNT 405 thou/uL (150-400); POLYS 92.7 % (36.0-66.0); RBC 4.39 mil/uL (4.20-5.00); RDW 17.2 % (10.5-14.5); WBC 14.5 thou/uL (4.0-11.0)
[2018-06-25 05:40] LABS: CALCIUM 9.2 mg/dL (8.5-10.1); CREATININE 0.7 mg/dL (0.6-1.0); MAGNESIUM 1.8 mg/dL (1.8-2.4); POTASSIUM 4.1 mmol/L (3.5-5.1)
[2018-06-25 07:25] VITALS: BP 99/41
[2018-06-25 12:30] VITALS: BP 116/69
[2018-06-25 17:06] VITALS: BP 103/54
[2018-06-25 19:57] VITALS: BP 129/83
[2018-06-26] VITALS (8 sets, daily range): BP systolic 101–140; BP diastolic 52–83
[2018-06-26 06:15] LABS: ABSOLUTE NEUTROPHILS 17.8 thou/uL (1.4-8.2); BASOPHILS 0.2 % (0.0-2.0); HEMATOCRIT 31.6 % (37.0-47.0); LYMPHOCYTES 4.7 % (24.0-44.0); MCH 24.8 pg (26.0-34.0); MCHC 31.7 g/dL (28.0-37.0); MCV 78.2 fL (80.0-100.0); PLATELET COUNT 438 thou/uL (150-400); POLYS 91.1 % (36.0-66.0); RBC 4.04 mil/uL (4.20-5.00); RDW 17.4 % (10.5-14.5); WBC 19.6 thou/uL (4.0-11.0)
[2018-06-26 06:16] LABS: CALCIUM 9.1 mg/dL (8.5-10.1); CREATININE 0.8 mg/dL (0.6-1.0); POTASSIUM 4.3 mmol/L (3.5-5.1)
[2018-06-26] MEDS ORDERED: TOUJEO SOL300 UNIT/1 SUBQ (12:18)
[2018-06-27 04:15] VITALS: BP 138/81
[2018-06-27 06:37] LABS: CALCIUM 9.2 mg/dL (8.5-10.1); CREATININE 0.7 mg/dL (0.6-1.0); POTASSIUM 4.9 mmol/L (3.5-5.1)
[2018-06-27 07:54] LABS: PLATELET COUNT 443 thou/uL (150-400)
[2018-06-27 08:08] VITALS: BP 124/78
[2018-06-27 08:11] LABS: RBC 4.08 mil/uL (4.20-5.00); WBC 16.6 thou/uL (4.0-11.0)
[2018-06-27 08:12] LABS: HEMATOCRIT 31.6 % (37.0-47.0); HEMOGLOBIN 10.3 gm/dL (12.0-15.0); MCH 25.3 pg (26.0-34.0); MCHC 32.6 % (28.0-37.0); MCV 77.5 fL (80.0-100.0); RDW 17.1 % (10.5-14.5)
[2018-06-27 11:40] VITALS: BP 117/71
[2018-06-27] MEDS ORDERED: FLEXERIL PO (15:28)
[2018-06-27 20:19] VITALS: BP 112/61
[2018-06-28 04:00] VITALS: BP 110/66
[2018-06-28 06:03] LABS: ABSOLUTE NEUTROPHILS 10.4 thou/uL (1.4-8.2); BASOPHILS 0.1 % (0.0-2.0); HEMATOCRIT 33.2 % (37.0-47.0); HEMOGLOBIN 10.6 gm/dL (12.0-15.0); MCH 24.7 pg (26.0-34.0); MCV 77.2 fL (80.0-100.0); MONOCYTES 4.3 % (1.0-8.0); PLATELET COUNT 438 thou/uL (150-400); POLYS 84.6 % (36.0-66.0); RBC 4.29 mil/uL (4.20-5.00); RDW 17.5 % (10.5-14.5); WBC 12.3 thou/uL (4.0-11.0)
[2018-06-28 06:16] LABS: CALCIUM 9.1 mg/dL (8.5-10.1); CREATININE 0.8 mg/dL (0.6-1.0); POTASSIUM 4.3 mmol/L (3.5-5.1)
[2018-06-28 07:45] VITALS: BP 119/72
[2018-06-28 11:56] VITALS: BP 103/63
[2018-06-28 16:38] VITALS: BP 117/79
[2018-06-28 19:01] VITALS: BP 118/67
[2018-06-29 03:30] VITALS: BP 115/47
[2018-06-29 09:31] VITALS: BP 153/86
[2018-06-29 20:10] VITALS: BP 117/82
[2018-06-30 04:23] VITALS: BP 103/66
[2018-06-30 06:20] LABS: HEMATOCRIT 33.9 % (37.0-47.0); HEMOGLOBIN 10.4 gm/dL (12.0-15.0); MCHC 30.8 g/dL (28.0-37.0); MCV 78.1 fL (80.0-100.0); PLATELET COUNT 457 thou/uL (150-400); RBC 4.33 mil/uL (4.20-5.00); RDW 17.2 % (10.5-14.5); WBC 12.6 thou/uL (4.0-11.0)
[2018-06-30 06:30] LABS: CALCIUM 8.9 mg/dL (8.5-10.1); CREATININE 0.9 mg/dL (0.6-1.0); POTASSIUM 3.5 mmol/L (3.5-5.1)
[2018-06-30 08:02] VITALS: BP 126/75
[2018-06-30 08:40] LABS: ABSOLUTE NEUTROPHILS 7.9 thou/uL (1.4-8.2); PLATELET ESTIMATE INCREASED
[2018-06-30 16:43] VITALS: BP 105/61
[2018-06-30 19:37] VITALS: BP 122/73
[2018-07-01 05:57] VITALS: BP 11/69
[2018-07-01 07:57] VITALS: BP 113/68
[2018-07-01 08:21] LABS: CALCIUM 9.6 mg/dL (8.5-10.1); CREATININE 0.9 mg/dL (0.6-1.0); POTASSIUM 3.6 mmol/L (3.5-5.1)
[2018-07-01] MEDS ORDERED: NORCO 10-325 T1 EACH PO (10:57)
[2018-07-01] MEDS ORDERED: PREDNISONE 10 M10 MG PO (10:57)
[2018-07-01] MEDS ORDERED: PULMICORT0.5 MG/21 INH (10:57)
[2018-07-01] MEDS ORDERED: MUCINEX DM ER1 EAC1 PO (10:57)
[2018-07-01] MEDS ORDERED: HOME MEDICATION SUBQ (10:57)
[2018-07-01 11:12] VITALS: BP 140/73
== END 2018-07-01 17:17 | disposition home health service (06) | DRG 871 ==
LOC: ER 13:32 → 3W 16:48 → EROBS 16:48 → 3W 17:56
PROVIDERS: Hospitalist; Internal Medicine; Physician Assistant
DX: A41.9 Sepsis, unspecified organism (principal); J18.9 Pneumonia, unspecified organism; J96.21 Acute and chronic respiratory failure with hypoxia; I50.33 Acute on chronic diastolic (congestive) heart failure; J44.0 Chronic obstructive pulmonary disease with (acute) lower respiratory infection; J44.1 Chronic obstructive pulmonary disease with (acute) exacerbation; Z68.42 Body mass index [BMI] 45.0-49.9, adult; I11.0 Hypertensive heart disease with heart failure; F32.9 Major depressive disorder, single episode, unspecified; F41.9 Anxiety disorder, unspecified; I48.0 Paroxysmal atrial fibrillation; F43.10 Post-traumatic stress disorder, unspecified; E86.0 Dehydration; M54.2 Cervicalgia; T38.0X5A Adverse effect of glucocorticoids and synthetic analogues, initial encounter; G89.29 Other chronic pain; E66.01 Morbid (severe) obesity due to excess calories; D64.9 Anemia, unspecified; E11.65 Type 2 diabetes mellitus with hyperglycemia; E78.00 Pure hypercholesterolemia, unspecified; H40.9 Unspecified glaucoma; E78.5 Hyperlipidemia, unspecified; L40.9 Psoriasis, unspecified; K21.9 Gastro-esophageal reflux disease without esophagitis; Z86.711 Personal history of pulmonary embolism; Z86.718 Personal history of other venous thrombosis and embolism; Z90.710 Acquired absence of both cervix and uterus; Z91.048 Other nonmedicinal substance allergy status; Z79.899 Other long term (current) drug therapy; Z88.0 Allergy status to penicillin; Z88.2 Allergy status to sulfonamides; Z88.8 Allergy status to other drugs, medicaments and biological substances; Z91.040 Latex allergy status; Z99.81 Dependence on supplemental oxygen; Z87.891 Personal history of nicotine dependence; Y92.89 Other specified places as the place of occurrence of the external cause
CPT/HCPCS: 10779

== ENCOUNTER → 2018-08-28 | Outpatient (CLI) | payer OTHER ==
[~2018-08-28] MED LIST changes: +HOME MEDICATION SUBQ; +MUCINEX DM ER1 EAC1 PO; +PULMICORT0.5 MG/21 INH
== END ==
LOC: MRI 08-14 13:18
DX: M48.02 Spinal stenosis, cervical region (principal); M54.12 Radiculopathy, cervical region; R20.2 Paresthesia of skin

== ENCOUNTER 2018-09-10 12:55 | Emergency (ER) | payer OTHER ==
[~2018-09-10] VITALS: Ht 157.5 cm; Wt 113.8 kg
--- NOTE | ~2018-09-10 | EKG ---
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
[2018-09-10 13:39] LABS: BE(vivo) 2.1 mmol/L (-2 to +3); HCO3 26.3 mmol/L (22.0-26.0); PCO2 VENOUS 39.2 mmHg (41.0-51.0); PO2 VENOUS 41.8 mmHg (35.0-45.0)
[2018-09-10 14:17] LABS: ABSOLUTE NEUTROPHILS 5.9 thou/uL (1.4-8.2); EOSINOPHILS 1.7 % (0.0-3.0); HEMATOCRIT 34.2 % (37.0-47.0); HEMOGLOBIN 11.1 gm/dL (12.0-15.0); LYMPHOCYTES 26.3 % (24.0-44.0); MCH 25.9 pg (26.0-34.0); MCHC 32.4 g/dL (28.0-37.0); MCV 80.1 fL (80.0-100.0); MONOCYTES 7.2 % (1.0-8.0); PLATELET COUNT 405 thou/uL (150-400); POLYS 63.8 % (36.0-66.0); RBC 4.26 mil/uL (4.20-5.00); RDW 16.7 % (10.5-14.5); WBC 9.3 thou/uL (4.0-11.0)
[2018-09-10 14:24] LABS: ANION GAP 10 mmol/L (7-16); BUN 17 mg/dL (7-18); CALCIUM 9.1 mg/dL (8.5-10.1); CHLORIDE 103 mmol/L (98-107); CO2 28 mmol/L (21-32); CREATININE 0.6 mg/dL (0.6-1.0); GLUCOSE 161 mg/dL (74-106); POTASSIUM 3.8 mmol/L (3.5-5.1); SODIUM 141 mmol/L (136-145)
[2018-09-10 14:32] LABS: ALBUMIN 3.3 g/dL (3.4-5.0); SGOT 22 U/L (15-37); SGPT 53 U/L (30-65); TOTAL BILIRUBIN 0.2 mg/dL (<0.1-1.0); TROPONIN-I <0.06 ng/mL (<0.06)
[2018-09-10 17:32] LABS: URINE BILIRUBIN NEGATIVE (Negative); URINE BLOOD NEGATIVE (Negative); URINE CLARITY CLEAR; URINE COLOR YELLOW; URINE GLUCOSE-RANDOM* 1+ (Negative); URINE KETONES NEGATIVE (Negative); URINE LEUKOCYTES-REFLEX NEGATIVE (Negative); URINE NITRITE-REFLEX NEGATIVE (Negative); URINE PROTEIN (DIPSTICK) NEGATIVE (Negative); URINE UROBILINOGEN 0.2 E.U./dl (0.2-1.0)
[2018-09-10 17:50] VITALS: BP 152/53
== END 2018-09-10 18:10 | disposition home or self-care (01) ==
LOC: ER 12:55
PROVIDERS: Student in an Organized Health Care Education/Training Program
DX: R07.89 Other chest pain (principal); I11.0 Hypertensive heart disease with heart failure; I50.30 Unspecified diastolic (congestive) heart failure; E11.9 Type 2 diabetes mellitus without complications; F41.9 Anxiety disorder, unspecified; K21.9 Gastro-esophageal reflux disease without esophagitis; Q61.3 Polycystic kidney, unspecified; E78.00 Pure hypercholesterolemia, unspecified; L40.9 Psoriasis, unspecified; G47.30 Sleep apnea, unspecified; G25.81 Restless legs syndrome; F31.9 Bipolar disorder, unspecified; J44.9 Chronic obstructive pulmonary disease, unspecified; Z87.891 Personal history of nicotine dependence; Z88.0 Allergy status to penicillin; Z88.2 Allergy status to sulfonamides; Z91.040 Latex allergy status; Z88.8 Allergy status to other drugs, medicaments and biological substances; Z90.711 Acquired absence of uterus with remaining cervical stump; Z86.718 Personal history of other venous thrombosis and embolism; Z86.711 Personal history of pulmonary embolism; Z86.2 Personal history of diseases of the blood and blood-forming organs and certain disorders involving the immune mechanism; Z79.4 Long term (current) use of insulin

== ENCOUNTER 2018-11-04 08:52 | Emergency (ER) | payer OTHER ==
[~2018-11-04] VITALS: Ht 157.5 cm; Wt 118.8 kg
[~2018-11-04 08:52] MED LIST changes: +DIPROLENE 0.05%15 GM TOP; -DIPROLENE AF 0.15 GM TP; -GABAPENTIN 100100 MG PO; +NEURONTIN 400400 M1 PO; -PRILOSEC 20 MG20 MG PO; +PROTONIX40 M2 PO
[2018-11-04] MEDS ORDERED: PRADAXA75 MG PO (10:08)
[2018-11-04] MEDS ORDERED: TOUJEO SOL300 UNIT/1 SUBQ (10:10)
[2018-11-04] MEDS ORDERED: HUMALOG100 UNIT/1 SUBQ ×3 (10:11→10:12)
[2018-11-04] MEDS ORDERED: METFORMIN HCL500 MG PO (10:13)
[2018-11-04] MEDS ORDERED: ZOFRAN ODT4 MG PO (10:14)
[2018-11-04] MEDS ORDERED: MIRALAX17 GM PO (10:14)
[2018-11-04] MEDS ORDERED: LATUDA20 MG PO (10:15)
[2018-11-04] MEDS ORDERED: COZAAR 25 MG TA25 M1 PO (10:15)
[2018-11-04] MEDS ORDERED: IBUPROFEN 800800 M1 PO (10:15)
[2018-11-04] MEDS ORDERED: DOVONEX60 GM TOP (10:22)
[2018-11-04] MEDS ORDERED: NORCO 10-325 T1 EACH PO (10:23)
[2018-11-04] MEDS ORDERED: NYSTATIN15 G3 TOP (10:24)
[2018-11-04 10:26] LABS: ABSOLUTE NEUTROPHILS 5.5 thou/uL (1.4-8.2); HEMATOCRIT 34.1 % (37.0-47.0); HEMOGLOBIN 11.3 gm/dL (12.0-15.0); LYMPHOCYTES 25.9 % (24.0-44.0); MCH 25.1 pg (26.0-34.0); MCHC 33.1 g/dL (28.0-37.0); MCV 75.8 fL (80.0-100.0); MONOCYTES 5.1 % (1.0-8.0); PLATELET COUNT 407 thou/uL (150-400); WBC 8.2 thou/uL (4.0-11.0)
[2018-11-04 10:36] LABS: CALCIUM 9.1 mg/dL (8.5-10.1); CREATININE 0.6 mg/dL (0.6-1.0); POTASSIUM 3.7 mmol/L (3.5-5.1)
[2018-11-04 10:39] LABS: APTT 26.7 Seconds (24.5-32.8); PROTIME 10.5 Seconds (9.3-11.4)
[2018-11-04 10:42] LABS: ALBUMIN 3.2 g/dL (3.4-5.0); TOTAL BILIRUBIN 0.2 mg/dL (<0.1-1.0); TOTAL PROTEIN 6.8 g/dL (6.4-8.2)
[2018-11-04] MEDS ORDERED: ROBAXIN 750 MG750 M1 PO (15:21)
[2018-11-04] MEDS ORDERED: TYLENOL325 MG PO (15:21)
[2018-11-04 15:42] VITALS: BP 136/58
== END 2018-11-04 15:43 | disposition home or self-care (01) ==
LOC: ER 08:52
PROVIDERS: Emergency Medicine
DX: S43.491A Other sprain of right shoulder joint, initial encounter (principal); S00.81XA Abrasion of other part of head, initial encounter; S80.211A Abrasion, right knee, initial encounter; J96.00 Acute respiratory failure, unspecified whether with hypoxia or hypercapnia; I10 Essential (primary) hypertension; E11.9 Type 2 diabetes mellitus without complications; F41.9 Anxiety disorder, unspecified; E78.00 Pure hypercholesterolemia, unspecified; I11.0 Hypertensive heart disease with heart failure; I50.30 Unspecified diastolic (congestive) heart failure; J44.9 Chronic obstructive pulmonary disease, unspecified; K21.9 Gastro-esophageal reflux disease without esophagitis; F31.9 Bipolar disorder, unspecified; Z87.891 Personal history of nicotine dependence; Z88.0 Allergy status to penicillin; Z88.2 Allergy status to sulfonamides; Z91.040 Latex allergy status; Z88.8 Allergy status to other drugs, medicaments and biological substances; V49.19XA Passenger injured in collision with other motor vehicles in nontraffic accident, initial encounter; Y93.89 Activity, other specified; Y92.89 Other specified places as the place of occurrence of the external cause; Y99.8 Other external cause status

== ENCOUNTER 2018-12-31 16:14 | Inpatient (IN) | payer OTHER ==
[~2018-12-31] VITALS: Ht 157.5 cm; Wt 114.8 kg
[~2018-12-31 16:14] MED LIST changes: +DOVONEX60 GM TOP; +LATUDA20 MG PO; +METFORMIN HCL500 MG PO; +NYSTATIN15 G3 TOP; +PRADAXA75 MG PO; +ROBAXIN 750 MG750 M1 PO
[2018-12-31 16:25] VITALS: BP 96/60
[2018-12-31 17:22] LABS: ABSOLUTE NEUTROPHILS 5.6 thou/uL (1.4-8.2); BASOPHILS 1.4 % (0.0-2.0); EOSINOPHILS 3.1 % (0.0-3.0); HEMATOCRIT 34.5 % (37.0-47.0); HEMOGLOBIN 11.2 gm/dL (12.0-15.0); LYMPHOCYTES 21.8 % (24.0-44.0); MCHC 32.6 g/dL (28.0-37.0); MCV 76.8 fL (80.0-100.0); PLATELET COUNT 391 thou/uL (150-400); POLYS 66.7 % (36.0-66.0); RBC 4.49 mil/uL (4.20-5.00); RDW 17.6 % (10.5-14.5); WBC 8.4 thou/uL (4.0-11.0)
[2018-12-31 17:41] LABS: ANION GAP 8 mmol/L (7-16); BUN 15 mg/dL (7-18); CALCIUM 8.4 mg/dL (8.5-10.1); CHLORIDE 94 mmol/L (98-107); CO2 36 mmol/L (21-32); CREATININE 0.8 mg/dL (0.6-1.0); GLUCOSE 114 mg/dL (74-106); SODIUM 138 mmol/L (136-145); TROPONIN-I <0.06 ng/mL (<0.06)
[2018-12-31 17:44] LABS: POTASSIUM 2.6 mmol/L (3.5-5.1)
[2018-12-31 18:08] LABS: BE(vivo) 10.5 mmol/L (-2 to +3); HCO3 35.3 mmol/L (22.0-26.0); PCO2 47.8 mmHg (35.0-45.0); PO2 96.8 mmHg (80.0-100.0); pH 7.486 (7.360-7.450); sO2 97.7 % (92.0-98.0)
[2018-12-31 20:27] VITALS: BP 115/67
--- NOTE | 2018-12-31 20:34 | NUR ---
UPDATED DMITRY HAGAN D/T BORDELINE BP AND LACTATE RESULTS. SEE COMPUTER FOR ORDER.
[2018-12-31 20:55] VITALS: BP 147/126
[2018-12-31 23:47] LABS: URINE BILIRUBIN NEGATIVE (Negative); URINE BLOOD NEGATIVE (Negative); URINE CLARITY CLEAR; URINE COLOR YELLOW; URINE GLUCOSE-RANDOM* 1+ (Negative); URINE KETONES TRACE (Negative); URINE PROTEIN (DIPSTICK) NEGATIVE (Negative); URINE UROBILINOGEN 0.2 E.U./dl (0.2-1.0)
[2018-12-31 23:51] LABS: URINE LEUKOCYTES-REFLEX 1+ (Negative); URINE NITRITE-REFLEX POSITIVE (Negative)
[2018-12-31 23:56] VITALS: BP 102/55
[2019-01-01 00:01] LABS: SQUAMOUS >10 Many /LPF (0-3)
[2019-01-01 00:02] LABS: BACTERIA-REFLEX >30 Many /HPF (None Seen); CASTS None Seen /LPF (None Seen); CRYSTALS None Seen /LPF (None Seen); MUCUS 0-3 Light strn/LPF (None Seen); URINE RBC 0-2 Rare /HPF (0-2)
[2019-01-01 01:31] LABS: AMP/METHAMP POSITIVE (Negative); BARBITURATES Negative (Negative); BENZODIAZEPINES POSITIVE (Negative); COCAINE Negative (Negative); METHADONE Negative (Negative); OPIATES Negative (Negative); PCP Negative (Negative)
[2019-01-01 04:13] VITALS: BP 99/60
--- NOTE | 2019-01-01 04:16 | NUR ---
PATIENT IS ALERT AND ORIENTED. PATIENT IS SBA TO ONE ASSIST WITH CANE AND GAITBELT. PATIENT IS ON 3L NC WHICH IS BASE. LINE. PATIENT HAS CHEST PAIN NON CARDIAC FROM COPD TREATED WITH TYLENOL. PATIENT IS ACHS. PATIENT IS NSR TO ST ON TELE. PATIENTS BP HAS BEEN STABLE SENSE COMING TO THE FLOOR. PATIENT LBM WAS TODAY. PATIENT IS RESTING COMFORTABLY NO COMPLAINTS AT THIS TIME. WCM
[2019-01-01 05:39] LABS: ABSOLUTE NEUTROPHILS 2.8 thou/uL (1.4-8.2); BASOPHILS 1.1 % (0.0-2.0); EOSINOPHILS 5.5 % (0.0-3.0); HEMATOCRIT 31.4 % (37.0-47.0); HEMOGLOBIN 10.2 gm/dL (12.0-15.0); LYMPHOCYTES 29.8 % (24.0-44.0); MCH 25.2 pg (26.0-34.0); MCHC 32.6 g/dL (28.0-37.0); MCV 77.2 fL (80.0-100.0); MONOCYTES 10.4 % (1.0-8.0); PLATELET COUNT 344 thou/uL (150-400); POLYS 53.2 % (36.0-66.0); RBC 4.07 mil/uL (4.20-5.00); RDW 17.6 % (10.5-14.5); WBC 5.2 thou/uL (4.0-11.0)
[2019-01-01 06:00] LABS: CALCIUM 7.4 mg/dL (8.5-10.1); CREATININE 0.8 mg/dL (0.6-1.0); TOTAL BILIRUBIN 0.2 mg/dL (<0.1-1.0); TOTAL PROTEIN 6.4 g/dL (6.4-8.2)
[2019-01-01 06:02] LABS: POTASSIUM 2.6 mmol/L (3.5-5.1)
[2019-01-01 07:44] VITALS: BP 108/74
--- NOTE | 2019-01-01 08:28 | EKG ---
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 : 1970 Requested By: Mario Johnson Order Number: [id number] MD: Paxton Lane Measurements Intervals [place] Rate: 100 P: 15 NH: 158 QRS: 1 QRSD: 102 T: 89 QT: 399 QTc: 515 Interpretive Statements Sinus tachycardia Atrial premature complex Compared to ECG 09/10/2018 13:06:38 Sinus rhythm no longer present Electronically Signed On 01-01-2019 8:27:[address] [email or web address] ��������������������������������������������� <ELECTRONICALLY SIGNED> ���������������������������������������� By: Paxton Lane MD ��������������������������������������������� 01/01/[address] MD /MISAEL
[2019-01-01 11:37] VITALS: BP 94/58
--- NOTE | 2019-01-01 14:01 | NUR ---
ASSESSMENT: CM REVIEWED CHART AND MET WITH PATIENT AT THE BEDSIDE. PT IS ALERT AND ORIENTED X4. PT REPORTS SHE LIVES AT HOME WITH HER FAMILY. PT REPORTS ABOUT 5-10 STEPS TO ENTER HER HOME WITH [employer]ANDR[employer]. PT REPORTS SHE IS CURRENTLY IN SERVICES WITH [facility] AND PLANS TO RESUME AT DISCHARGE. CM FAXED REFERRAL TO [facility]. PT STATES SHE HAS A WALKER AT HOME BUT NORMALLY USES A CANE. PT STATES SHE HAS A BIPAP AT HOME AND ALSO OXYGEN AT HOME WHICH IS ARRANGED THROUGH [facility] FOR HOME. PT PLANS TO RETURN HOME WITH HOME HEALTH ONCE MEDICALLY STABLE.
[2019-01-01 15:25] VITALS: BP 91/57
--- NOTE | 2019-01-01 20:02 | NUR ---
PT ALERT AND ORIENTED TIMES FOUR. BP LOW BUT STABLE, 98% 3L, SR ON TELE. PT C/O PAIN PRN PAIN MEDICATIONS GIVEN WITH GOOD RELEIF. PT UP TO CHAIR FOR MOST OF THE DAY. PT TOLERATES MEDS AND MEALS. PT SLOWLY PROGRESSING TOWRADS POC GOALS.
[2019-01-01 20:49] VITALS: BP 101/43
[2019-01-02 00:12] VITALS: BP 101/43
--- NOTE | 2019-01-02 02:46 | NUR ---
FALL RISK IN PLACE. PT IS KNOWN TO UNIT FROM PREVIOUS VISITS. FOLLOWING POC WITH IVF TO BRING ELECTROLYTES BACK IN PARAMETERS. BREATHING TREATMENTS CONTINUING AND MONITORING BLOOD SUGARS. PT CALLS OUT FOR PO PAIN MEDICATION ON Q4 BASIS. HOURLY ROUNDING.
[2019-01-02 05:05] VITALS: BP 112/87
[2019-01-02 08:08] VITALS: BP 97/53
--- NOTE | 2019-01-02 11:33 | NUR ---
Nutrition: assess d/t high BMI and sepsis dx. Pt admitted for UTI, early sepsis, and hypotension. Pt was sleeping during attempted visit. No family present. Pt has been admitted multiple times in the past and RD education has been provided. Wt hx shows relatively stable wt of 250-300 lbs over past 4 years. Sepsis is improving per nursing. Consider low nutrition risk at this time.
[2019-01-02 12:56] VITALS: BP 97/53
[2019-01-02 14:18] LABS: HEMATOCRIT 31.5 % (37.0-47.0); MCH 25.3 pg (26.0-34.0); MCHC 31.7 g/dL (28.0-37.0); MCV 79.9 fL (80.0-100.0); RBC 3.94 mil/uL (4.20-5.00); RDW 17.8 % (10.5-14.5); WBC 4.8 thou/uL (4.0-11.0)
[2019-01-02 14:37] LABS: CALCIUM 7.7 mg/dL (8.5-10.1); CREATININE 0.7 mg/dL (0.6-1.0); MAGNESIUM 1.6 mg/dL (1.8-2.4); POTASSIUM 4.5 mmol/L (3.5-5.1)
[2019-01-02] MEDS ORDERED: LASIX 20 MG TAB20 MG PO (15:02)
[2019-01-02] MEDS ORDERED: SLOW-MAG64 M1 PO (15:02)
[2019-01-02] MEDS ORDERED: POTASSIUM20 PO (15:02)
[2019-01-02] MEDS ORDERED: LEVAQUIN 500 M500 M1 PO (15:02)
[2019-01-02 15:14] VITALS: BP 95/45
--- NOTE | 2019-01-02 16:34 | NUR ---
ON-GOING ASSESSMENT: CM REVIEWED CHART AND MET WITH PT. PT HAS ORDERS TO DISCHARGE HOME TODAY WITH HH. CM NOTIFIED [facility] WHO STATES THEY CAN ACCEPT HER AND CM FAXED DISCHARGE ORDERS AND CONFIRMED THEY RECEIVED IT. PT REPORTS SHE DOES NOT HAVE TRANSPORTATION HOME. PT HAS MEDICAID SECONDARY SO CM CONTACTED [facility] [phone] AND ARRANGED CAB TO TAKE PATIENT HOME. CM NOTIFIED THEM THAT PATIENT IS REQUIRING OXYGEN AND THEY STATE THEY CANNOT PROVIDE IT BUT IT WE SENT PT WITH A PORTABLE TANK THEY WILL RETURN IT. CM VERIFIED WITH DIRECTOR AND APPROVAL TO SEND WITH TANK THAT THEY WILL RETURN. TRIP# IS [id number]. BEDSIDE RN NOTIFIED AND [employer] IS TO CONTACT THEM ONCE THEY HAVE ARRIVED. CONTACT [facility] IF NEEDED [phone] TRIP#[id number].
[2019-01-02 16:55] VITALS: BP 97/53
== END 2019-01-02 19:06 | disposition home health service (06) | DRG 872 ==
LOC: ER 16:14 → 3W 19:15 → EROBS 19:15 → 3W 20:52 → ENTRNSPT 01-02 18:58 → 3W 01-02 19:06
PROVIDERS: Emergency Medicine; ADMIT Internal Medicine
DX: A41.9 Sepsis, unspecified organism (principal); N39.0 Urinary tract infection, site not specified; J96.11 Chronic respiratory failure with hypoxia; I50.32 Chronic diastolic (congestive) heart failure; D68.59 Other primary thrombophilia; Z68.42 Body mass index [BMI] 45.0-49.9, adult; J44.9 Chronic obstructive pulmonary disease, unspecified; E11.9 Type 2 diabetes mellitus without complications; H40.9 Unspecified glaucoma; F41.9 Anxiety disorder, unspecified; E78.00 Pure hypercholesterolemia, unspecified; F31.9 Bipolar disorder, unspecified; G25.81 Restless legs syndrome; K21.9 Gastro-esophageal reflux disease without esophagitis; I11.0 Hypertensive heart disease with heart failure; E87.6 Hypokalemia; E83.42 Hypomagnesemia; I95.9 Hypotension, unspecified; E66.01 Morbid (severe) obesity due to excess calories; F12.10 Cannabis abuse, uncomplicated; J45.909 Unspecified asthma, uncomplicated; F19.10 Other psychoactive substance abuse, uncomplicated; Z79.4 Long term (current) use of insulin; Z90.711 Acquired absence of uterus with remaining cervical stump; Z86.718 Personal history of other venous thrombosis and embolism; Z86.711 Personal history of pulmonary embolism; Z88.0 Allergy status to penicillin; Z88.2 Allergy status to sulfonamides; Z88.8 Allergy status to other drugs, medicaments and biological substances; Z91.040 Latex allergy status; Z87.891 Personal history of nicotine dependence; Z82.49 Family history of ischemic heart disease and other diseases of the circulatory system; Z23 Encounter for immunization
CPT/HCPCS: 10879

== ENCOUNTER 2019-07-02 14:21 | Emergency (ER) | payer OTHER ==
[~2019-07-02] VITALS: Ht 157.5 cm; Wt 56.2 kg
[~2019-07-02 14:21] MED LIST changes: +LEVAQUIN 500 M500 M1 PO; +SLOW-MAG64 M1 PO
[2019-07-02 15:32] LABS: ABSOLUTE NEUTROPHILS 4.4 thou/uL (1.4-8.2); BASOPHILS 0.8 % (0.0-2.0); EOSINOPHILS 1.5 % (0.0-3.0); HEMATOCRIT 32.2 % (37.0-47.0); HEMOGLOBIN 10.3 gm/dL (12.0-15.0); LYMPHOCYTES 37.8 % (24.0-44.0); MCH 24.9 pg (26.0-34.0); MCHC 32.1 g/dL (28.0-37.0); MCV 77.5 fL (80.0-100.0); MONOCYTES 6.5 % (1.0-8.0); PLATELET COUNT 434 thou/uL (150-400); POLYS 53.4 % (36.0-66.0); RBC 4.15 mil/uL (4.20-5.00); RDW 16.2 % (10.5-14.5); WBC 8.3 thou/uL (4.0-11.0)
[2019-07-02 15:37] LABS: ANION GAP 12 mmol/L (7-16); BUN 15 mg/dL (7-18); CALCIUM 8.9 mg/dL (8.5-10.1); CHLORIDE 105 mmol/L (98-107); CO2 24 mmol/L (21-32); CREATININE 0.6 mg/dL (0.6-1.0); GLUCOSE 124 mg/dL (74-106); POTASSIUM 3.5 mmol/L (3.5-5.1); SODIUM 141 mmol/L (136-145)
[2019-07-02 15:46] LABS: TROPONIN-I <0.06 ng/mL (<0.06)
--- NOTE | 2019-07-02 16:18 | EKG ---
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: : 1970 Requested By: Jose Padilla Order Number: [id number] MD: Vishal Valadez Measurements Intervals [place] Rate: 80 P: -3 DC: 162 QRS: 16 QRSD: 102 T: -17 QT: 393 QTc: 454 Interpretive Statements Sinus rhythm Early transition Baseline artifact Compared to ECG 12/31/2018 16:19:16 Sinus tachycardia no longer present Atrial premature complex(es) no longer present Electronically Signed On 07-02-2019 16:18:21 CDT by Vishal Valadez [email or web address] <ELECTRONICALLY SIGNED> By: Vishal Valadez MD 07/02/19 1618 142 142 Vishal Valadez MD /MISAEL
[2019-07-02] MEDS ORDERED: DOXYCYCLINE 10100 MG PO (16:27)
[2019-07-02] MEDS ORDERED: PREDNISONE 20 M20 M1 PO (16:27)
[2019-07-02 16:41] VITALS: BP 142/79
== END 2019-07-02 16:48 | disposition home or self-care (01) ==
LOC: ER 14:21
PROVIDERS: Emergency Medicine
DX: J44.1 Chronic obstructive pulmonary disease with (acute) exacerbation (principal); M25.552 Pain in left hip; I11.0 Hypertensive heart disease with heart failure; I50.30 Unspecified diastolic (congestive) heart failure; E78.00 Pure hypercholesterolemia, unspecified; E11.9 Type 2 diabetes mellitus without complications; K21.9 Gastro-esophageal reflux disease without esophagitis; G47.30 Sleep apnea, unspecified; Z90.711 Acquired absence of uterus with remaining cervical stump; Z86.711 Personal history of pulmonary embolism; Z86.718 Personal history of other venous thrombosis and embolism; Z98.890 Other specified postprocedural states; Z79.4 Long term (current) use of insulin; Z88.6 Allergy status to analgesic agent; Z88.2 Allergy status to sulfonamides; Z91.040 Latex allergy status; Z88.0 Allergy status to penicillin; Z91.048 Other nonmedicinal substance allergy status; Z88.8 Allergy status to other drugs, medicaments and biological substances; Z87.891 Personal history of nicotine dependence

== ENCOUNTER → 2019-07-21 | Outpatient (CLI) | payer OTHER ==
[~2019-07-21] VITALS: Ht 157.5 cm; Wt 99.8 kg
[~2019-07-21] MED LIST changes: +PREDNISONE 20 M20 M1 PO
[2019-07-21 12:48] VITALS: BP 113/76
--- NOTE | 2019-07-21 13:26 | NUR ---
Pain Clinic Assessment: 1. History of Osteoarthritis: Left Lower Extremity Right Lower Extremity History of Rheumatoid Arthritis: Not Applicable 2. Height: 5 ft. 2 in. 157.5 cm. Weight: 220.0 lb. oz. 99.792 kg. Patient's BMI: 40.2 3. Vital Signs: BP: 113/76 Pulse: 102 Resp: 14 Temp: 02 Sat: 97 ECG Mon: 4. Pain Intensity: 8 5. Fall Risk: Dizziness: Y Needs help standing or walking: Y Fallen in the last 3 months: Y Fall risk comments: 6. Patient on Blood Thinner: PRADAXA 7. History of Hypertension: Y 8. Opioid Therapy greater than 6 weeks: Y Opiate Contract Signed: 9. Risk Assessment Tool Provided: 10. Functional Assessment Tool: 11. Recreational Drug Use: Past greater than 3 mos Drug Type: METH AND CRACK Tobacco Use: Former Smoker Tobacco Type: Cigarettes Amount or Packs/day: How Many Years: Alcohol Use: No Frequency: Quant:
--- NOTE | 2019-08-04 12:47 | HPC ---
[facility] [place] [address] PAIN MANAGEMENT CONSULTATION Name: ADRIÁN DAN Ebony Room #: [facility]#: [id number] Admission: 07/21/19 Attend Phys: Cisco Nelson DO Discharge: Date of : 68 Report #: [id number] THIS REPORT FOR: //name// CC: Cisco Velasquez MD DATE OF SERVICE: 07/21/2019 REFERRING PHYSICIAN: Dr. Hayley Velasquez. CHIEF COMPLAINT: Neck pain, bilateral upper extremity pain with paresthesias, low back pain, bilateral lower extremity pain with paresthesias. HISTORY OF PRESENT ILLNESS: As you know, the patient is a very unfortunate 49-year-old female referred to our service to discuss the possibility of undergoing cervical epidural injections under fluoroscopic guidance. The patient reports she has had longstanding pain issues with progressively worsening symptoms. She has sought evaluation from multiple pain physicians. We are the third pain physician the patient is seen. She has recently been seen at pain care of who advised the patient that "her case was too dangerous to be performed in an outpatient setting." The patient returned to her PCP and was subsequently referred to our clinic to discuss this option for interventional treatments to be provided at a hospital setting. The patient indicates she has had pain since 1999. She denies injury or trauma. She has had neck pain issues, specifically on and off since the year 1999, has had chronic low back pain and lower extremity symptoms, for which she has undergone epidural injections in the past without complication. She has unfortunately received very little benefit with epidural injections in the lumbar spine, reporting only 2-day improvement with these procedures. She has subsequently discontinued these activities. She reports to us today without any new imaging of the lumbar spine and thus I cannot comment further on this issue. She does report pain in the neck, for which she gives a rating of 10/10. She has minor changes in the cervical spine based on MRI nearly 1 year ago. She was referred to our clinic to discuss the options for treatment. The patient states that she has had a history of polysubstance abuse in the past. She does indicate that her primary care physician has started her on hydrocodone and has had her on those for about 3 years. She is requesting to continue this medication and has been advised she needs to contact our clinic to be seen and advise whether or not this is an appropriate treatment course. She is also requesting this information will be provided to the prescribing physician, Dr. Velasquez. PAST MEDICAL HISTORY: 1. Diabetes mellitus type 2. 2. Seizures. 3[place] [address] PAIN MANAGEMENT CONSULTATION Name: NIADRIÁN [facility] [id number] Admission: 07/21/19 Attend Phys: Cisco Nelson DO Discharge: Date of : 68 Report #: [id number] 4. Hypertension. 5. Chronic obstructive pulmonary disease. 6. Chronic kidney disease. 7. Gastroesophageal reflux disease. 8. Degenerative joint disease. 9. Osteoarthritis. 10. History of necessary anticoagulation. 11. Restless leg syndrome. 12. Anxiety disorder. 13. Chronic intractable pain. PAST SURGICAL HISTORY: 1. Partial hysterectomy. 2. Dilation and curettage. 3. Rectocele excision. 4. Implantation of a transitional mesh. SOCIAL HISTORY: The patient is a reformed smoker, quit about 6 years ago with 3-pack-year history of smoking. She denies IV or illicit drug use, but has an extensive history of this. She denies any chronic alcohol use. She is on disability for nearly 4 years. She is not in litigation in regards to her symptoms. She is unaccompanied today. REVIEW OF SYSTEMS: Positive for weight gain, headaches, eye disease, wearing corrective eyewear, blurred and double vision, cataracts, hearing loss with tinnitus, chronic sinus problems with rhinitis, shortness of breath, heart trouble, palpitations, nausea, vomiting, frequent urination, nocturia, lightheadedness, dizziness, convulsions and seizures, numbness and tingling sensations, nervousness, depression, diabetes mellitus insulin dependent, excessive thirst and urination, slow to heal after cuts. All other review of systems negative per 12-point review of systems other than those listed in history of present illness. Pain impact score 48 of 70 indicating severe interference of daily activities secondary to pain. ALLERGIES: PAPER TAPE, LATEX, SULFA, PROCHLORPERAZINE, FENTANYL, TRAMADOL, BUSPIRONE, KETOROLAC, PENICILLIN, ALPRAZOLAM, METAXALONE. CURRENT MEDICATIONS: Doxycycline 100 mg twice a day, magnesium oxide 64 mg twice a day, potassium chloride 20 mEq p.o. every day, furosemide 20 mg twice a day, acetaminophen 325 mg every 6 hours, nystatin twice a day, Latuda 20 mg once a day, ibuprofen 800 mg twice a day, losartan 25 mg once a day, MiraLax 17 grams once a day, metformin 500 mg twice a day, Humalog sliding scale, lispro 5 units with meals, Pradaxa 75 mg once a day, cyclobenzaprine 10 mg 3 times a day p.r.n., Toujeo SoloStar 15 units twice a day, Tradjenta 5 mg once a day, [facility] [address] [place] [address] PAIN MANAGEMENT CONSULTATION Name: ADRIÁN DAN Ebony Room #: [facility]#: [id number] Admission: 07/21/19 Attend Phys: Cisco Nelson DO Discharge: Date of : 68 Report #: [id number] 4 mg twice a day, diazepam 5 mg p.r.n., escitalopram 10 mg per day, diazepam 10 mg p.o. at bedtime, latanoprost one drop each eye per day, Keppra 500 mg twice a day, gabapentin 400 mg 3 times a day, ropinirole 0.25 mg 3 times a day, Advair 250/50 one puff b.i.d., albuterol 2 puffs q. 4 hours p.r.n., montelukast sodium 10 mg per day. IMAGING: MRI cervical spine 09/27/2018 shows mild to moderate neural foraminal stenosis and uncovertebral facet arthropathy at the C5-C6, C6-C7 and there is mild diffuse disk bulging at C4-C5, C5-C6, C6-C7 and C7-T1 and no significant central canal stenosis. PQRS: The patient has arthritic changes of the lumbar spine, bilateral hips, bilateral knees and cervical spine. No rheumatoid arthritis, placing pain intensity at 8/10. She is at a fall risk and has had multiple falls. She is using ambulatory devices. She is on blood thinners in the form of Pradaxa. She is treated for hypertension. She is on chronic opioids. She has a high risk for opioid addiction based on our assessment tool. Pain impact is 48 of 70, severe interference of daily activities secondary to pain. PHYSICAL EXAMINATION: VITAL SIGNS: Blood pressure 113/76, pulse 102, respiratory rate 14 and unlabored. The patient is 97% on room air. Height 5 feet 2 inches tall, weight 220 pounds, BMI calculated 40.2. GENERAL: Well-developed, well-nourished, well-hydrated 49-year-old female appearing much older than stated age. She is placing pain today at 8/10. HEENT: Normocephalic, atraumatic. Pupils equal, round, reactive to light. Extraocular muscles are intact. Sclerae are nonicteric without injection. NEUROLOGIC: Cranial nerves 2-12 are grossly intact. Speech is fluent. The patient deemed a poor historian. LUNGS: Decreased breath sounds bilaterally, prolonged expiratory phase. The patient is utilizing concentrated oxygen to maintain O2 saturation. There is expiratory wheezing noted bilaterally. CARDIOVASCULAR: Regular. No appreciable gallop, no rub. ABDOMEN: Soft, obese. Bowel sounds are present. EXTREMITIES: Show clubbing in the upper extremities that is mild in nature, no cyanosis, and no edema. MUSCULOSKELETAL: There is some palpatory tenderness noted over the paraspinal musculature of cervical spine. No spinous process tenderness. Upper extremity strength is deconditioned bilaterally, but strength is equal. Muscle bulk and tone is equal and symmetrical in comparing left upper extremity to right upper extremity. Deep tendon reflexes are reduced bilaterally, 1+/4 but symmetrical. Cervical provocation testing is met with increasing pain with lateral flexion, rotation and extension, both the left and right. Spurling's test is negative. ASSESSMENT: 1. Chronic cervical radiculopathy. [address] [address] PAIN MANAGEMENT CONSULTATION Name: ADRIÁN DAN Room #: [facility] Jyotsna#: [id number] Admission: 07/21/19 Attend Phys: Cisco Nelson DO Discharge: Date of : 68 Report #: [id number] 2. Neural foraminal stenosis of the cervical spine. 3. Cervical facet syndrome. 4. History of polysubstance abuse. 5. History of chronic low back pain. PLAN: 1. Based on today's physical exam and history the patient has provided, the description the patient uses in regards to pain as well as the findings of the year old MRI, it would appear the symptoms that the patient is experiencing are due to the foraminal stenosis at C4-C5 and C5-C6. I am pleased to advise the patient that there are no central canal stenosis issues present. After we have reviewed the patient's year old MRI, we discussed the potential treatment options with the patient today. The following was discussed with the patient, the treatment options we would recommend. We discussed physical therapy, stretching exercises and traction techniques. This could be quite effective in this patient's case as her symptoms are related to foraminal stenosis, which you are aware are formed by the arch of the vertebral body above and the vertebral body below and thus traction techniques can alleviate some of the pressure on the nerves as they exit the neural foramen. We discussed medication management, for which we would only recommend nonsteroidal anti-inflammatory and escalating doses of neuropathic medications. She is currently on a fairly low dose of gabapentin, which could be escalated quite easily. Other medications that could be added nortriptyline, amitriptyline and possible Cymbalta, though this would have to be exchanged with her antidepressant medications she is currently on. We discussed cervical epidural injections, for which the patient was referred to our clinic. We also discussed surgical options with the patient today. After reviewing the risks and the benefits of all proposed treatment options, the patient chose to undergo a cervical epidural injection under fluoroscopic guidance. 2. The patient was advised that due to third libertarian payer restrictions, authorization will have to be obtained. Authorization could take anywhere from 7-10 days. We will begin this authorization process immediately. Once this authorization has been completed, we will then contact the patient and have her come off the Pradaxa in an appropriate amount of timeframe based on MALCOLM guidelines. The patient will need to gain clearance from the prescribing physician to come off the Pradaxa to be able to undergo the procedure. Pradaxa must be discontinued based on MALCOLM guidelines, no foreshortening of the timeframe. She will have to be off the medication in appropriate timeframe. 3. The patient has indicated to this physician that she is currently utilizing hydrocodone 10/325 up to 3 tablets per day. Apparently, she has been on this medication for an extended period of time. This was initiated by her PCP. I have advised the patient at this appointment that we are not actively taking opioid management patients. Given the [place] [address] PAIN MANAGEMENT CONSULTATION Name: ADRIÁN DAN Room #: REG [facility] Jyotsna#: [id number] Admission: 07/21/19 Attend Phys: Cisco Nelson DO Discharge: Date of : 68 Report #: [id number] opioids in the recent completed lawsuits against opioid manufactures, we do not feel these medications will be available for any length of time and thus we are not initiating any patients on opioid medications that have not been on them prescribed through our services. All these medications will ultimately be discontinued whether it is from a legal ramification or by KIKI discontinuing the use of these medications in chronic pain, it remains to be seen, but again we are not taking on any new opioid medication patients at this time. The patient indicates that she is comfortable with her medication; it allows her to go about her activities of daily living. Obviously, the primary care physician who initiated this therapy considers this as a viable option for treatment and we will defer to them if they wish to continue this therapy. We again will not be involved in opioid medication management in this patient's case. 4. We will see the patient back in followup visit for the cervical epidural injection proposed to treat the neck pain that she is experiencing. We have advised the patient that she is a surgical candidate, though her underlying health conditions may preclude her from undergoing surgery. She does have pathology at the C4-C5 and C5-C6 levels, which may be amenable to surgical approach. She could consider this option. We would recommend she follow up with her PCP in regards to referrals for this type of surgical procedure if she wishes to do so. 5. The patient has sought treatment from multiple pain physicians. She has been advised by each of those physicians that resolution of her pain is not possible. We have reiterated this today. Pain the type that the patient is experiencing is difficult at best to get controlled. We will do our best to provide injections to improve her cervical radicular symptoms, but if these are ineffective, more aggressive treatment will likely be necessary. 6. We wish to thank Dr. Velasquez for the referral of the patient to our clinic. We will keep you apprised of response to treatment as we address cervical radiculopathy with cervical epidural injections. Again, we wish to thank Dr. Velasquez for this opportunity. <ELECTRONICALLY SIGNED> By: Cisco Nelson DO 08/04/19 1247 [id number] 2225 Cisco Nelson DO /nt
== END ==
LOC: PAIN 07:00
DX: M48.02 Spinal stenosis, cervical region (principal); M54.12 Radiculopathy, cervical region; M54.5 Low back pain; K21.9 Gastro-esophageal reflux disease without esophagitis; J44.9 Chronic obstructive pulmonary disease, unspecified; E11.22 Type 2 diabetes mellitus with diabetic chronic kidney disease; I12.9 Hypertensive chronic kidney disease with stage 1 through stage 4 chronic kidney disease, or unspecified chronic kidney disease; N18.9 Chronic kidney disease, unspecified; M19.90 Unspecified osteoarthritis, unspecified site; F41.9 Anxiety disorder, unspecified; Z88.8 Allergy status to other drugs, medicaments and biological substances; Z79.899 Other long term (current) drug therapy

== ENCOUNTER → 2019-09-08 | Outpatient (CLI) | payer OTHER | LOC: CAT 14:56 | DX: N83.202 Unspecified ovarian cyst, left side (principal) ==

== ENCOUNTER → 2019-09-16 | Outpatient (CLI) | payer OTHER | LOC: RAD 14:48 | DX: R07.1 Chest pain on breathing (principal); Z88.2 Allergy status to sulfonamides; Z88.0 Allergy status to penicillin; Z88.8 Allergy status to other drugs, medicaments and biological substances ==

== ENCOUNTER 2020-03-30 12:01 | Emergency (ER) | payer OTHER ==
[~2020-03-30] VITALS: Ht 157.5 cm; Wt 111.1 kg
[2020-03-30 12:53] LABS: ANION GAP 8 mmol/L (7-16); BUN 14 mg/dL (7-18); CALCIUM 8.4 mg/dL (8.5-10.1); CHLORIDE 100 mmol/L (98-107); CO2 30 mmol/L (21-32); CREATININE 0.8 mg/dL (0.6-1.0); GLUCOSE 100 mg/dL (74-106); POTASSIUM 3.6 mmol/L (3.5-5.1); SODIUM 138 mmol/L (136-145)
[2020-03-30 12:58] LABS: HEMOGLOBIN 9.8 gm/dL (12.0-15.0)
[2020-03-30 12:59] LABS: HEMATOCRIT 30.7 % (37.0-47.0); MCH 24.9 pg (26.0-34.0); MCV 77.9 fL (80.0-100.0); RBC 3.94 mil/uL (4.20-5.00); RDW 25.5 % (10.5-14.5); WBC 14.2 thou/uL (4.0-11.0)
[2020-03-30 13:03] LABS: ALBUMIN 3.2 g/dL (3.4-5.0); LIPASE 482 U/L (73-393); SGOT 27 U/L (15-37); SGPT 33 U/L (30-65); TOTAL BILIRUBIN < 0.1 mg/dL (0.2-1.0); TOTAL PROTEIN 6.7 g/dL (6.4-8.2); TROPONIN-I <0.06 ng/mL (<0.06)
[2020-03-30 13:45] LABS: PROTIME 9.9 Seconds (9.3-11.4)
[2020-03-30 14:10] LABS: ABSOLUTE NEUTROPHILS 9.2 thou/uL (1.4-8.2); ANISOCYTOSIS 2+; MICROCYTES 2+; PLATELET COUNT 301 thou/uL (150-400); PLATELET ESTIMATE NORMAL; SCHISTOCYTES 1+
[2020-03-30] MEDS ORDERED: OMEPRAZOLE40 MG PO (14:47)
[2020-03-30] MEDS ORDERED: LEVETIRACETAM500 M1 PO (14:47)
[2020-03-30 15:42] LABS: URINE BILIRUBIN NEGATIVE (Negative); URINE BLOOD NEGATIVE (Negative); URINE CLARITY SL CLOUDY; URINE COLOR YELLOW; URINE GLUCOSE-RANDOM* NEGATIVE (Negative); URINE KETONES NEGATIVE (Negative); URINE LEUKOCYTES-REFLEX NEGATIVE (Negative); URINE NITRITE-REFLEX NEGATIVE (Negative); URINE PROTEIN (DIPSTICK) NEGATIVE (Negative); URINE SPECIFIC GRAVITY <= 1.005 (1.005-1.035); URINE UROBILINOGEN 0.2 E.U./dl (0.2-1.0)
[2020-03-30] MEDS ORDERED: NORCO 10-325 T1 EACH PO (16:06)
[2020-03-30] MEDS ORDERED: ZOFRAN ODT4 MG PO (16:06)
[2020-03-30 16:11] VITALS: BP 109/74
--- NOTE | 2020-03-31 08:49 | EKG ---
[facility] [place] [address] ELECTROCARDIOGRAM REPORT Name: ADRIÁN DAN Room #: [facility]#: [id number] Admission: 03/30/20 Attend Phys: Discharge: 03/30/20 Date of : 68 Report #: [id number] THIS REPORT FOR: cc: Hayley Velasquez MD, Nora P. MD Lundgren, Craig H. 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: [facility] : 1970 Requested By: Shaylee Geiger Order Number: [id number] MD: Azael Weber Measurements Intervals [place] Rate: 104 P: 39 DE: 137 QRS: 28 QRSD: 97 T: 73 QT: 388 QTc: 511 Interpretive Statements Sinus tachycardia Borderline repolarization abnormality Prolonged QT interval Compared to ECG 07/02/2019 14:23:36 Prolonged QT interval now present Electronically Signed On 03-31-2020 8:49:24 CDT by Azael Weber [email or web address] <ELECTRONICALLY SIGNED> By: Azael Weber MD, [facility] 03/31/20 0849 1211 1211 Azael Weber MD, [facility] /EPI
== END 2020-03-30 16:11 | disposition home or self-care (01) ==
LOC: ER 12:01
PROVIDERS: Nurse Practitioner Family
DX: K85.90 Acute pancreatitis without necrosis or infection, unspecified (principal); E11.9 Type 2 diabetes mellitus without complications; J44.9 Chronic obstructive pulmonary disease, unspecified; Z90.710 Acquired absence of both cervix and uterus; Z87.891 Personal history of nicotine dependence; Z79.899 Other long term (current) drug therapy; Z79.2 Long term (current) use of antibiotics; Z79.84 Long term (current) use of oral hypoglycemic drugs; Z88.0 Allergy status to penicillin; Z88.2 Allergy status to sulfonamides; Z88.8 Allergy status to other drugs, medicaments and biological substances; Z91.040 Latex allergy status; Z91.048 Other nonmedicinal substance allergy status